=== PATIENT | male | born 1975 | race Hispanic/Latino ===

== ENCOUNTER → 2018-07-08 | Emergency (ER) | payer SELFPAY ==
[~2018-07-08] VITALS: Ht 172.7 cm; Wt 63.5 kg
--- OUTSIDE RECORDS SUMMARY | 2018-07-08 19:47 | XMS REPORT | Clinical Summary ---
Author Author [facility] Organization [facility] Address Unknown Phone Unavailable Care Team Providers Care Director [employer] Name Role Phone PCP Unavailable Allergies Comments Active Allergy Reactions Severity Noted Date Iodine 01/27/2016 No Known Drug Allergies 02/12/2010 Medications No known medications Active Problems Problem Noted Date Ankle pain 01/27/2016 Forehead laceration 01/27/2016 Acute heart failure Hypervolemia Fever Encounters Care Team Description Date Type Specialty Olya Quintana MD Chest pain, unspecified type (Primary Dx); Acute heart failure, unspecified heart failure type; Hypervolemia, unspecified hypervolemia type; Fever, unspecified fever cause; Sepsis, due to unspecified organism 06/14/2018 Emergency Emergency Medicine - 06/15/2018 after 07/07/2017 Immunizations Name Dates Previously Given Next Due Tdap Tetanus, diphtheria, 01/27/2016 acellular pertussis Vaccine Social History Date Tobacco Use Types Packs/Day Years Used Never Smoker Smokeless Tobacco: Never Used Alcohol Use Drinks/Week oz/Week Comments No Sex Assigned at Date Recorded Not on file Industry Job Start Date Occupation Not on file Not on file Not on file Travel End Travel History Travel Start No recent travel history available. Last Filed Vital Signs Time Taken Vital Sign Reading 06/15/2018 5:30 AM 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 Blood Pressure 101/73 06/15/2018 5:30 AM 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 Pulse 99 06/14/2018 11:21 PM 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 Temperature 36.9 C (98.4 F) 06/15/2018 5:30 AM 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 Respiratory Rate 18 06/15/2018 5:30 AM 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 Oxygen Saturation 100% - Inhaled Oxygen - Concentration - Weight - - Height - - Body Mass Index - Plan of Treatment Health Maintenance Due Date Last Done Comments IMM Influenza Seasonal 05/02/2018May to September (>/=19 yrs) Procedures Comments Procedure Name Priority Date/Time Associated Diagnosis VBG POC Routine 06/15/2018 4:24 AM 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 CENTRAL LINE INSERTION Routine 06/15/2018 Chest pain, unspecified 1:21 AM 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 type VBG POC Routine 06/15/2018 1:09 AM 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 XRAY CHEST 1 VIEW STAT 06/15/2018 Acute heart failure, 1:01 AM 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 unspecified heart failure type INFLUENZA A/B AND RSV PCR STAT 06/14/2018 10:43 PM 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 XRAY CHEST 2 VIEWS STAT 06/14/2018 Chest pain, unspecified 9:41 PM 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 type BLOOD CULTURE STAT 06/14/2018 8:27 PM 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 VBG POC Routine 06/14/2018 8:20 PM 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 BLOOD CULTURE STAT 06/14/2018 8:18 PM 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 CKMB, REFLEX Routine 06/14/2018 8:10 PM 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 CK, TOTAL Routine 06/14/2018 8:10 PM 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 TOTAL T4 Routine 06/14/2018 8:10 PM 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 FREE T3 Routine 06/14/2018 8:10 PM 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 BASIC METABOLIC PANEL Routine 06/14/2018 8:10 PM 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 TROPONIN I STAT 06/14/2018 8:10 PM 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 BMP POC Routine 06/14/2018 4:38 PM 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 TROPONIN I POC Routine 06/14/2018 4:36 PM 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 B NATRIURETIC PEPT STAT 06/14/2018 4:35 PM 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 HIV-1/HIV-2 ROUTINE STAT 06/14/2018 SCREENING 4:35 PM 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 CBC/DIFF STAT 06/14/2018 4:35 PM 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 12 LEAD EKG Routine 06/14/2018 4:00 PM 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 after 07/07/2017 Results * VBG POC (06/15/2018 4:24 AM 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) Only the most recent of 3 results within the time period is included. pH, Federico POC 7.43 7.33 - 7.43 BT MAIN-STATION 1 pCO2, Federico POC 44.7 38.0 - 50.0 mm Hg BT MAIN-STATION 1 pO2, Federico POC 24 (L) 50 - 75 mm Hg BT MAIN-STATION 1 Base Excess, 5 mmol/L BT MAIN-STATION Federico POC 1 HCO3, Federico POC 30.0 (H) 22.0 - 26.0 mmol/L BT MAIN-STATION 1 % Sat, Federico POC 44 (L) 60 - 85 % BT MAIN-STATION 1 Lactic Acid, 1.29 0.4 - 2.0 mmol/L BT MAIN-STATION Federico POC 1 TCO2, FEDERICO POC 31 21 - 32 mmol/L BT MAIN-STATION 1 Performing Organization Address City/State/Zipcode Phone Number MISYS BT MAIN-STATION 1 * CENTRAL LINE INSERTION (06/15/2018 1:21 AM 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) Narrative Performed At [facility] 06/15/20181:05 AM Central Line Insertion Date/Time: 06/15/2018 1:00 AM Performed by: ANGELA SPENCER I Authorized by: OLYA QUINTANA Consent: Consent obtained:Verbal Consent given by:Patient and parent Risks discussed:Arterial puncture, bleeding, incorrect placement, infection, nerve damage and pneumothorax Alternatives discussed:No treatment [place] protocol: Procedure explained and questions answered to patient or proxy's satisfaction: yes Relevant documents present and verified: yes Test results available and properly labeled: yes Imaging studies available: yes Required blood products, implants, devices, and special equipment available: yes Site/side marked: yes Immediately prior to procedure, a time out was called: yes Patient identity confirmed:Verbally with patient Pre-procedure details: Hand hygiene: Hand hygiene performed prior to insertion Sterile barrier technique: All elements of maximal sterile technique followed Skin preparation:2% chlorhexidine Skin preparation agent: Skin preparation agent completely dried prior to procedure Anesthesia (see MAR for exact dosages): Anesthesia method:Local infiltration Local anesthetic:Lidocaine 1% w/o epi Procedure details: Location:R internal jugular Patient position:Flat Procedural supplies:Triple lumen Catheter size:7.5 Fr Landmarks identified: yes Ultrasound guidance: yes Sterile ultrasound techniques: Sterile gel and sterile probe covers were used Number of attempts:1 Successful placement: yes Post-procedure details: Post-procedure:Dressing applied and line sutured Assessment:Blood return through all ports, free fluid flow, no pneumothorax on x-ray and placement verified by x-ray Patient tolerance of procedure:Tolerated well, no immediate complications Additional documentation:: None Estimated blood loss (ml):0 No prosthetic devices, grafts, tissues, transplants or devices implanted * XRAY CHEST 1 VIEW (06/15/2018 1:01 AM 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) Impressions Performed At IMPRESSION: SMS 1.Interval right IJ CVC with tip projecting over the cavoatrial junction. No post line insertion pneumothorax. 2.Stable interstitial edema with medium right pleural effusion. 3.Age-indeterminate thoracic vertebral body compression deformity better evaluated on previous 2 view chest radiograph. A "PRELIMINARY" report was made available via Cinet[employer]ffic at the time of dictation by the resident indicated below. If the report is described as "FINALIZED" it indicates the attending/staff radiologist below has reviewed the images and agrees with the resident's interpretation. Dictated By: Patsy Antunez MD, 06/15/2018 1:11 AM I have reviewed the study and agree with the findings in this report. Signed By: Zoe Harrison MD, 06/15/2018 1:48 AM Narrative Performed At EXAMINATION:XRAY CHEST 1 VIEW, AP SMS INDICATION: Central line placement ADDITIONAL HISTORY (per [facility]): Chest pain, history of congestive heart failure. COMPARISON:Chest x-ray 06/14/2018 9:43 PM. FINDINGS: TUBES/LINES:Interval placement of a right internal jugular approach central venous catheter whose tip projects over the cavoatrial junction. LUNGS AND PLEURA:Stable peribronchial cuffing and vascular congestion. Unchanged medium right pleural effusion with fluid tracking into the major minor fissures. HEART/MEDIASTINUM:Moderately enlarged cardiomediastinal silhouette. MUSCULOSKELETAL:Age-indeterminate mid-thoracic vertebrae compression deformity better evaluated on previous 2 view chest radiograph. UPPER ABDOMEN: No acute findings. SOFT TISSUES: No acute findings. Procedure Note Interface, Rad/Mammog In - 06/15/2018 1:53 AM 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 EXAMINATION: XRAY CHEST 1 VIEW, AP INDICATION: Central line placement ADDITIONAL HISTORY (per [facility]): Chest pain, history of congestive heart failure. COMPARISON: Chest x-ray 06/14/2018 9:43 PM. FINDINGS: TUBES/LINES: Interval placement of a right internal jugular approach central venous catheter whose tip projects over the cavoatrial junction. LUNGS AND PLEURA: Stable peribronchial cuffing and vascular congestion. Unchanged medium right pleural effusion with fluid tracking into the major minor fissures. HEART/MEDIASTINUM: Moderately enlarged cardiomediastinal silhouette. MUSCULOSKELETAL: Age-indeterminate mid-thoracic vertebrae compression deformity better evaluated on previous 2 view chest radiograph. UPPER ABDOMEN: No acute findings. SOFT TISSUES: No acute findings. IMPRESSION IMPRESSION: 1. Interval right IJ CVC with tip projecting over the cavoatrial junction. No post line insertion pneumothorax. 2. Stable interstitial edema with medium right pleural effusion. 3. Age-indeterminate thoracic vertebral body compression deformity better evaluated on previous 2 view chest radiograph. A "PRELIMINARY" report was made available via [employer]inet[employer] at the time of dictation by the resident indicated below. If the report is described as "FINALIZED" it indicates the attending/staff radiologist below has reviewed the images and agrees with the resident's interpretation. Dictated By: Patsy Antunez MD, 06/15/2018 1:11 AM I have reviewed the study and agree with the findings in this report. Signed By: Zoe Harrison MD, 06/15/2018 1:48 AM Performing Organization Address City/[facility] Phone Number SMS * INFLUENZA A/B AND RSV PCR (06/14/2018 10:43 PM 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) Influenza A Not detected BT DIAGNOSTIC IMMUNOLOGY Influenza B Not detected BT DIAGNOSTIC IMMUNOLOGY RSV PCR Not detected BT DIAGNOSTIC This test utilizes FDA cleared IMMUNOLOGY Garcia sanna Influenza A/B and RSV real-time RT-PCR assay for qualitative detection and discrimination of Influenza A virus,Influenza B virus and Respiratory Syncytial virus(RSV). Additional testing is required to differentiate any specific Influenza A subtype or strains or specific RSV subgroups. Spec Swab BT MAIN-STATION Description 4 Performing Organization Address [facility] Phone Number [facility] BT DIAGNOSTIC IMMUNOLOGY BT MAIN-STATION 4 * XRAY CHEST 2 VIEWS (06/14/2018 9:41 PM 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) Impressions Performed At IMPRESSION: SMS 1.Interstitial edema. Medium right pleural effusion which tracks into the major and minor fissure. 2.Age-indeterminate thoracic vertebral body compression deformity. A "PRELIMINARY" report was made available via Cinet[employer] at the time of dictation by the resident indicated below. If the report is described as "FINALIZED" it indicates the attending/staff radiologist below has reviewed the images and agrees with the resident's interpretation. Dictated By: Patsy Antunez MD, 06/14/2018 10:33 PM I have reviewed the study and agree with the findings in this report. Signed By: Zoe Harrison MD, 06/14/2018 10:36 PM Narrative Performed At EXAMINATION:XRAY CHEST 2 VIEWS, Frontal and lateral SMS INDICATION: chest pain, history of congestive heart failure COMPARISON:Chest x-ray 02/15/2010. FINDINGS: TUBES/LINES:None LUNGS AND PLEURA:Peribronchial cuffing. Central vascular congestion. Medium right pleural effusion with fluid tracking into the major and minor fissure. HEART/MEDIASTINUM:Moderately enlarged cardiac silhouette. MUSCULOSKELETAL:Age indeterminant compression deformity of a mid thoracic vertebral body (possibly T6) resulting in approximately 50% loss of vertebral body height. Questionable additional compression deformity just superior to this vertebral body. UPPER ABDOMEN: No acute findings. SOFT TISSUES: No acute findings. Procedure Note Interface, Rad/Mammog In - 06/14/2018 10:41 PM 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 EXAMINATION: XRAY CHEST 2 VIEWS, Frontal and lateral INDICATION: chest pain, history of congestive heart failure COMPARISON: Chest x-ray 02/15/2010. FINDINGS: TUBES/LINES: None LUNGS AND PLEURA: Peribronchial cuffing. Central vascular congestion. Medium right pleural effusion with fluid tracking into the major and minor fissure. HEART/MEDIASTINUM: Moderately enlarged cardiac silhouette. MUSCULOSKELETAL: Age indeterminant compression deformity of a mid thoracic vertebral body (possibly T6) resulting in approximately 50% loss of vertebral body height. Questionable additional compression deformity just superior to this vertebral body. UPPER ABDOMEN: No acute findings. SOFT TISSUES: No acute findings. IMPRESSION IMPRESSION: 1. Interstitial edema. Medium right pleural effusion which tracks into the major and minor fissure. 2. Age-indeterminate thoracic vertebral body compression deformity. A "PRELIMINARY" report was made available via [employer]inet[employer] at the time of dictation by the resident indicated below. If the report is described as "FINALIZED" it indicates the attending/staff radiologist below has reviewed the images and agrees with the resident's interpretation. Dictated By: Patsy Antunez MD, 06/14/2018 10:33 PM I have reviewed the study and agree with the findings in this report. Signed By: Zoe Harrison MD, 06/14/2018 10:36 PM Performing Organization Address City/State/Zipcode Phone Number SMS * BLOOD CULTURE (06/14/2018 8:27 PM 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) Only the most recent of 2 results within the time period is included. Spec Blood BT MICROBIOLOGY Description Order Comments None BT MICROBIOLOGY Culture No growth 6 days BT MICROBIOLOGY Report Status Final 06/20/2018 BT MICROBIOLOGY Specimen Blood bag - BLOOD Performing Organization Address [facility] [place] [facility] Phone Number MISYS BT MICROBIOLOGY * CKMB, REFLEX (06/14/2018 8:10 PM 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) CK-MB 4.7 0.6 - 6.3 ng/mL BT MAIN-STATION 1 CKMB Index 1.6 0 - 2.5 BT MAIN-STATION 1 Performing Organization Address City/[facility] Phone Number MISYS BT MAIN-STATION 1 * TOTAL T4 (06/14/2018 8:10 PM 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) Total T4 7.00 6.09 - 12.23 mcg/dL BT MAIN-STATION 1 Performing Organization Address [facility] Phone Number MISYS BT MAIN-STATION 1 * FREE T3 (06/14/2018 8:10 PM 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) Free T3 2.73 2.5 - 3.9 pg/mL BT MAIN-STATION 1 Performing Organization Address City/[facility] Phone Number [facility] BT MAIN-STATION 1 * TROPONIN I (06/14/2018 8:10 PM 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) Troponin I 0.09 (H) <0.04 ng/mL BT MAIN-STATION 1 Specimen Blood Performing Organization Address [facility] Phone Number [facility] BT MAIN-STATION 1 * CK, TOTAL (06/14/2018 8:10 PM 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) CK, Total 299 (H) 30 - 223 U/L BT MAIN-STATION 1 Performing Organization Address City/State/[facility] Phone Number [facility] BT MAIN-STATION 1 * BASIC METABOLIC PANEL (06/14/2018 8:10 PM 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) CO2 31 21 - 31 mmol/L BT MAIN-STATION 1 Chloride 90 (L) 98 - 107 mmol/L BT MAIN-STATION 1 Potassium 4.9 3.5 - 5.1 mmol/L BT MAIN-STATION 1 Sodium 128 (L) 136 - 145 mmol/L BT MAIN-STATION 1 Glucose 207 (H) 70 - 110 mg/dL BT MAIN-STATION 1 Urea Nitrogen 35 (H) 7 - 25 mg/dL BT MAIN-STATION 1 Creatinine 2.00 (H) 0.7 - 1.3 mg/dL BT MAIN-STATION 1 Anion Gap 7 BT MAIN-STATION 1 Calcium 7.9 (L) 8.6 - 10.3 mg/dL BT MAIN-STATION 1 GFR, Estimated 37 mL/min/1.73 m2 BT MAIN-STATION 1 GFR, Estim, 45 mL/min/1.73 m2 BT MAIN-STATION Afr-Am 1 Performing Organization Address [facility] [place] [facility] Phone Number MISYS MAIN-STATION 1 * BMP POC (06/14/2018 4:38 PM 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) CO2 POC 26Comment: Physician Notified 21 - 32 mmol/L BT MAIN-STATION 1 Chloride POC 87 (L) 98 - 107 mmol/L BT MAIN-STATION 1 Potassium POC 3.6 3.50 - 5.10 mmol/L BT MAIN-STATION 1 Sodium POC 133 (L) 136 - 145 mmol/L BT MAIN-STATION 1 Glucose POC 203 (H) 74 - 106 mg/dL BT MAIN-STATION 1 Urea Nitrogen 32 (H) 7 - 18 mg/dL BT MAIN-STATION POC 1 Creatinine POC 1.9 (H) 0.6 - 1.3 mg/dL BT MAIN-STATION 1 Calcium Ionized 1.03 (L) 1.15 - 1.29 mmol/L BT MAIN-STATION POC 1 Hemoglobin POC 15.3 14.0 - 18.0 g/dL BT MAIN-STATION 1 Hematocrit POC 45.0 40.0 - 54.0 % BT MAIN-STATION 1 GFR, Estimated 39 mL/min/1.73 m2 BT MAIN-STATION 1 GFR, Estim, 48 mL/min/1.73 m2 BT MAIN-STATION Afr-Am 1 Performing Organization Address [facility]/State/Zipcode Phone Number MISYS BT MAIN-STATION 1 * TROPONIN I POC (06/14/2018 4:36 PM 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) Troponin POC 0.07Comment: Physician 0.00 - 0.08 ng/mL BT MAIN-STATION Notified 1 Performing Organization Address [facility] Phone Number [facility] BT MAIN-STATION 1 * HIV-1/HIV-2 ROUTINE SCREENING (06/14/2018 4:35 PM 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) HIV-1/HIV-2 Negative NEG BT MAIN-STATION 3 Performing Organization Address City/State/[facility] Phone Number [facility] BT MAIN-STATION 3 * B NATRIURETIC PEPT (06/14/2018 4:35 PM 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) B Natriuretic 6,970 (H) <101 pg/mL BT MAIN-STATION Pept 1 Specimen Blood Performing Organization Address [facility] Phone Number MISYS BT MAIN-STATION 1 * CBC/DIFF (06/14/2018 4:35 PM 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) WBC 4.5 4.5 - 12.0 K/uL BT MAIN-STATION 2 RBC 4.23 (L) 4.60 - 6.20 M/uL BT MAIN-STATION 2 Hemoglobin 12.9 (L) 14.0 - 18.0 g/dL BT MAIN-STATION 2 Hematocrit 39.6 (L) 40.0 - 54.0 % BT MAIN-STATION 2 MCV 94 (H) 82 - 92 fL BT MAIN-STATION 2 MCH 30.5 27.0 - 31.0 pg BT MAIN-STATION 2 MCHC 32.6 32.0 - 36.0 g/dL BT MAIN-STATION 2 RDW 50.1 (H) 35.1 - 43.9 fL BT MAIN-STATION 2 Platelet 101 (L) 150 - 400 K/uL BT MAIN-STATION 2 Mean Platelet 12.2 9.4 - 12.4 fL BT MAIN-STATION Volume 2 Percent NRBC 0.0 BT MAIN-STATION 2 Absolute NRBC 0.00 BT MAIN-STATION 2 Neutrophil 70.9 (H) 34.0 - 67.9 % BT MAIN-STATION 2 Lymphocyte 20.3 (L) 21.8 - 50.0 % BT MAIN-STATION 2 Monocyte 8.0 5.3 - 12.0 % BT MAIN-STATION 2 Eosinophil 0.0 (L) 0.8 - 5.0 % BT MAIN-STATION 2 Basophil 0.4 0.2 - 1.2 % BT MAIN-STATION 2 Pct Immat Gran 0.4 0.0 - 0.5 BT MAIN-STATION 2 Neutrophil, Abs 3.17 1.78 - 5.36 K/uL BT MAIN-STATION 2 Lymphocyte, Abs 0.91 (L) 1.32 - 3.57 K/uL BT MAIN-STATION 2 Monocyte, Abs 0.36 0.30 - 0.82 K/uL BT MAIN-STATION 2 Eosinophil, Abs <0.01 (L) 0.04 - 0.54 K/uL BT MAIN-STATION 2 Basophil, Abs 0.02 0.01 - 0.08 K/uL BT MAIN-STATION 2 Absol Immat 0.02 0.00 - 0.03 K/uL BT MAIN-STATION Gran 2 Specimen Blood Performing Organization Address City/State/Zipcode Phone Number MISYS BT MAIN-STATION 2 * 12 LEAD EKG (06/14/2018 4:00 PM 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 Measurements Intervals [place] Rate: 135 P: 55 AR: 136 QRS: 71 QRSD: 77 T:-40 QT: 279 QTc:419 Interpretive Statements SINUS TACHYCARDIA NONSPECIFIC ST & T-WAVE ABNORMALITY Reviewed by Electronically Signed On 06-14-18 18:22:39 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 by Dee Momin M.D. Performing Organization Address City/State/Zipcode Phone Number [facility] after 07/07/2017 Insurance Type Payer Benefit Subscriber ID Effective Phone Address Plan / Dates Group [facility]Y [facility] xxxxxxxxx 2016- [phone] [employer] [place] [address]
--- OUTSIDE RECORDS SUMMARY | 2018-07-08 19:48 | XMS REPORT | Clinical Summary ---
Author Author Martin Bahai Organization Martin Bahai Address Unknown Phone Unavailable Care Team Providers [facility] [employer] [employer] Name Role Phone Asked, No Pcp PCP Unavailable Allergies Comments Active Allergy Reactions Severity Noted Date Patient states he cannot breathe, has severe facial swelling Iodine And Iodide Anaphylaxis, High 05/31/2018 Containing Products Shortness Of Breath Medications End Date Status Medication Sig Dispensed Refills Start Date Active albuterol (PROAIR Inhale 2 0 HFA,PROVENTIL puffs every 6 HFA,VENTOLIN HFA) 90 (six) hours mcg/actuation inhaler as needed for wheezing. 06/24/2018 naproxen (NAPROSYN) 500 Take 1 tablet 20 tablet 0 06/14/201 MG tablet (500 mg 8 total) by mouth 2 (two) times a day with meals for 10 days. Active Problems Problem Noted Date Septic shock 06/15/2018 Systolic heart failure 06/15/2018 Pleural effusion 06/15/2018 Suicidal ideation 06/15/2018 LFTs abnormal 06/15/2018 NORA (acute kidney injury) 06/15/2018 Thrombocytopenia 06/15/2018 Leukopenia 06/15/2018 Neutropenia 06/15/2018 Hypokalemia 06/15/2018 Hypocalcemia 06/15/2018 Normocytic anemia 06/15/2018 Asthma 06/15/2018 Elevated INR (international normalized ratio) 06/15/2018 Acute congestive heart failure 05/31/2018 Ankle pain 01/27/2016 Encounters Care Team Description Date Type Specialty Jenifer Sinha MD Khoshnevis, Matt R., MD Shah, MD Vaibhav Willis Jinping, MD Clewing, Johanna, MD 06/15/2018 Hospital Cardiology - Encounter 06/28/2018 N/A 06/15/2018 Intake Access Oskar Brown, Pain in both feet (Primary Dx) 06/14/2018 Emergency Emergency Medicine 06/14/2018 Travel Mulugeta Moss MD Abouelseoud, Tanseem Hamad Mohamed A, MD Roberts, Matthew Thomas, DO Acute congestive heart failure, unspecified heart failure type (HCC) (Primary Dx); Pleural effusion on right; Anasarca 05/31/2018 [facility] General Internal Medicine - Encounter 06/03/2018 after 07/07/2017 Social History Date Tobacco Use Types Packs/Day Years Used Current Every Day Smoker 1 Smokeless Tobacco: Never Used Alcohol Use Drinks/Week oz/Week Comments Yes Sex Assigned at Date Recorded Not on file Industry Job Start Date Occupation Not on file Not on file Not on file Travel End Travel History Travel Start No recent travel history available. Last Filed Vital Signs Time Taken Vital Sign Reading 06/28/2018 4:15 PM [facility] Blood Pressure 113/74 06/28/2018 4:15 PM [facility] Pulse 85 06/28/2018 11:47 AM [facility] Temperature 35.9 C (96.6 F) 06/28/2018 4:15 PM [facility] Respiratory Rate 18 06/28/2018 4:15 PM [facility]IST Oxygen Saturation 100% - Inhaled Oxygen - Concentration 06/26/2018 5:03 AM [facility] Weight 73.6 kg (162 lb 4.8 oz) 06/15/2018 7:00 AM [facility] Height 172.7 cm (5' 8") 06/26/2018 5:03 AM [facility] Body Mass Index 24.68 Plan of Treatment Health Maintenance Due Date Last Done Comments INFLUENZA VACCINE 03/02/2018 HEPATITIS B VACCINES Aged Out No longer eligible based on patient's age to complete this topic IPV VACCINES Aged Out No longer eligible based on patient's age to complete this topic MENINGOCOCCAL VACCINE Aged Out No longer eligible based on patient's age to complete this topic Procedures Comments Procedure Name Priority Date/Time Associated Diagnosis POC GLUCOSE Routine 06/28/2018 4:41 PM [facility] POC GLUCOSE Routine 06/28/2018 1:30 PM [facility]IST CV CTA CORONARY ARTERIES Routine 06/28/2018 W CONTRAST 1:25 PM INS[facility]S STR[facility]GIST POC GLUCOSE Routine 06/28/2018 11:57 AM [facility] STR[facility]GIST POC GLUCOSE Routine 06/28/2018 9:00 AM [facility]S STR[facility]GIST POTASSIUM LEVEL Routine 06/28/2018 4:00 AM INSIGHTS STR[facility]GIST ESTIMATED GFR Routine 06/28/2018 2:38 AM [facility]S STR[facility]GIST BASIC METABOLIC PANEL Routine 06/28/2018 2:38 AM [facility] STR[facility]IST HC COMPLETE BLD COUNT Routine 06/28/2018 W/AUTO DIFF 2:30 AM INS[facility]S STR[facility]GIST POC GLUCOSE Routine 06/27/2018 5:09 PM [facility] STR[facility]GIST POC GLUCOSE Routine 06/27/2018 1:[address] ABDOMEN PELVIS WO STAT 06/27/2018 CONTRAST 4:38 AM INSIGHTS STRATEGIST ESTIMATED GFR Routine 06/27/2018 3:49 AM INSIGHTS STRATEGIST BASIC METABOLIC PANEL Routine 06/27/2018 3:49 AM [facility] STR[facility]GIST HC COMPLETE BLD COUNT Routine 06/27/2018 W/AUTO DIFF 3:30 AM INSIGHTS STRATEGIST POC GLUCOSE Routine 06/26/2018 10:24 PM INSIGHTS STRATEGIST ECG 12-LEAD STAT 06/26/2018 9:36 PM INSIGHTS STRATEGIST POC GLUCOSE Routine 06/26/2018 4:47 PM INSIGHTS STRATEGIST POC GLUCOSE Routine 06/26/2018 4:13 PM INSIGHTS STRATEGIST POC GLUCOSE Routine 06/26/2018 11:45 AM INSIGHTS STRATEGIST POC GLUCOSE Routine 06/26/2018 7:55 AM INSIGHTS STRATEGIST ESTIMATED GFR Routine 06/26/2018 6:00 AM INSIGHTS STRATEGIST PHOSPHORUS LEVEL Routine 06/26/2018 6:00 AM INSIGHTS STRATEGIST BASIC METABOLIC PANEL Routine 06/26/2018 6:00 AM INSIGHTS STRATEGIST MAGNESIUM LEVEL Routine 06/26/2018 6:00 AM INSIGHTS STRATEGIST HC COMPLETE BLD COUNT Routine 06/26/2018 W/AUTO DIFF 4:30 AM INSIGHTS STRATEGIST MAGNESIUM LEVEL Routine 06/26/2018 3:39 AM INSIGHTS STRATEGIST PHOSPHORUS LEVEL Routine 06/26/2018 3:39 AM INSIGHTS STRATEGIST BASIC METABOLIC PANEL Routine 06/26/2018 3:39 AM INSIGHTS STRATEGIST HC COMPLETE BLD COUNT Routine 06/26/2018 W/AUTO DIFF 2:30 AM INSIGHTS STRATEGIST POC GLUCOSE Routine 06/25/2018 8:05 PM INSIGHTS STRATEGIST POC GLUCOSE Routine 06/25/2018 5:38 PM INSIGHTS STRATEGIST POC GLUCOSE Routine 06/25/2018 1:01 PM INSIGHTS STRATEGIST POC GLUCOSE Routine 06/25/2018 8:30 AM INSIGHTS STRATEGIST ESTIMATED GFR Routine 06/25/2018 3:56 AM INSIGHTS STRATEGIST COMPREHENSIVE METABOLIC Routine 06/25/2018 PANEL 3:56 AM INSIGHTS STRATEGIST CBC HEMOGRAM Routine 06/25/2018 2:52 AM INSIGHTS STRATEGIST POC GLUCOSE Routine 06/25/2018 1:04 AM INSIGHTS STRATEGIST VANCOMYCIN LEVEL, TROUGH Routine 06/25/2018 12:09 AM INSIGHTS STRATEGIST POC GLUCOSE Routine 06/24/2018 8:33 PM INSIGHTS STRATEGIST POC GLUCOSE Routine 06/24/2018 5:46 PM INSIGHTS STRATEGIST XR ABDOMEN 1 VW Routine 06/24/2018 3:44 PM INSIGHTS STRATEGIST XR CHEST 1 VW Routine 06/24/2018 3:43 PM INSIGHTS STRATEGIST POC GLUCOSE Routine 06/24/2018 12:01 PM INSIGHTS STRATEGIST POC GLUCOSE Routine 06/24/2018 7:49 AM INSIGHTS STRATEGIST ESTIMATED GFR Routine 06/24/2018 4:00 AM INSIGHTS STRATEGIST COMPREHENSIVE METABOLIC Routine 06/24/2018 PANEL 4:00 AM INSIGHTS STRATEGIST MANUAL DIFFERENTIAL Routine 06/24/2018 3:45 AM INSIGHTS STRATEGIST CBC WITH PLATELET AND Routine 06/24/2018 DIFFERENTIAL 3:45 AM INSIGHTS STRATEGIST POC GLUCOSE Routine 06/23/2018 8:37 PM INSIGHTS STRATEGIST POC GLUCOSE Routine 06/23/2018 5:16 PM INSIGHTS STRATEGIST POC GLUCOSE Routine 06/23/2018 12:56 PM INSIGHTS STRATEGIST POC GLUCOSE Routine 06/23/2018 8:45 AM INSIGHTS STRATEGIST POC GLUCOSE Routine 06/23/2018 5:18 AM INSIGHTS STRATEGIST MANUAL DIFFERENTIAL Routine 06/23/2018 5:00 AM INSIGHTS STRATEGIST CBC WITH PLATELET AND Routine 06/23/2018 DIFFERENTIAL 5:00 AM INSIGHTS STRATEGIST ESTIMATED GFR Routine 06/23/2018 4:00 AM INSIGHTS STRATEGIST COMPREHENSIVE METABOLIC Routine 06/23/2018 PANEL 4:00 AM [facility]S STRATEGIST POC GLUCOSE Routine 06/23/2018 1:10 AM [facility]S STR[facility]GIST VANCOMYCIN LEVEL, TROUGH Timed 06/22/2018 10:30 PM INSIGHTS STRATEGIST POC GLUCOSE Routine 06/22/2018 8:37 PM INSIGHTS STRATEGIST POC GLUCOSE Routine 06/22/2018 4:30 PM INSIGHTS STRATEGIST POC GLUCOSE Routine 06/22/2018 11:51 AM INSIGHTS STRATEGIST POC GLUCOSE Routine 06/22/2018 8:39 AM INSIGHTS STRATEGIST ESTIMATED GFR Routine 06/22/2018 2:50 AM [facility]S STRATEGIST HC COMPLETE BLD COUNT Routine 06/22/2018 W/AUTO DIFF 2:50 AM INSIGHTS STRATEGIST COMPREHENSIVE METABOLIC Routine 06/22/2018 PANEL 2:50 AM INS[facility]S STR[facility]GIST XR CHEST 2 VW STAT 06/21/2018 8:51 PM INSIGHTS STRATEGIST XR CHEST 1 VW PORTABLE STAT 06/21/2018 5:19 PM INS[facility]S STRATEGIST POC GLUCOSE Routine 06/21/2018 3:43 PM INSIGHTS STRATEGIST POC GLUCOSE Routine 06/21/2018 11:57 AM INSIGHTS STRATEGIST ESTIMATED GFR Routine 06/21/2018 4:00 AM INSIGHTS STRATEGIST COMPREHENSIVE METABOLIC Routine 06/21/2018 PANEL 4:00 AM [facility]IGHTS STRATEGIST PHOSPHORUS LEVEL Routine 06/21/2018 4:00 AM INSIGHTS STRATEGIST MAGNESIUM LEVEL Routine 06/21/2018 4:00 AM INSIGHTS STRATEGIST HC COMPLETE BLD COUNT Routine 06/21/2018 W/AUTO DIFF 4:00 AM INSIGHTS STRATEGIST POC GLUCOSE Routine 06/21/2018 12:45 AM INSIGHTS STRATEGIST POC GLUCOSE Routine 06/20/2018 8:57 PM INSIGHTS STRATEGIST POC GLUCOSE Routine 06/20/2018 6:13 PM INSIGHTS STRATEGIST POC GLUCOSE Routine 06/20/2018 12:56 PM INSIGHTS STRATEGIST ESTIMATED GFR Routine 06/20/2018 4:00 AM INSIGHTS STRATEGIST PROTHROMBIN TIME WITH INR Routine 06/20/2018 4:00 AM INSIGHTS STRATEGIST PHOSPHORUS LEVEL Routine 06/20/2018 4:00 AM INSIGHTS STRATEGIST MAGNESIUM LEVEL Routine 06/20/2018 4:00 AM INSIGHTS STRATEGIST BASIC METABOLIC PANEL Routine 06/20/2018 4:00 AM INSIGHTS STRATEGIST HC COMPLETE BLD COUNT Routine 06/20/2018 W/AUTO DIFF 4:00 AM INSIGHTS STRATEGIST POC GLUCOSE Routine 06/20/2018 3:51 AM INSIGHTS STRATEGIST POC GLUCOSE Routine 06/19/2018 6:53 PM INSIGHTS STRATEGIST TROPONIN STAT 06/19/2018 3:53 PM INSIGHTS STRATEGIST ECG 12-LEAD STAT 06/19/2018 3:33 PM INSIGHTS STRATEGIST POC GLUCOSE Routine 06/19/2018 3:18 PM INSIGHTS STRATEGIST POC GLUCOSE Routine 06/19/2018 11:15 AM INSIGHTS STRATEGIST ECG 12-LEAD STAT 06/19/2018 6:09 AM INSIGHTS STRATEGIST O2 SATURATION, VENOUS Routine 06/19/2018 5:30 AM INSIGHTS STRATEGIST POC GLUCOSE Routine 06/19/2018 5:06 AM INSIGHTS STRATEGIST HC COMPLETE BLD COUNT Routine 06/19/2018 W/AUTO DIFF 4:30 AM INSIGHTS STRATEGIST ESTIMATED GFR Routine 06/19/2018 4:00 AM INSIGHTS STRATEGIST PHOSPHORUS LEVEL Routine 06/19/2018 4:00 AM INSIGHTS STRATEGIST MAGNESIUM LEVEL Routine 06/19/2018 4:00 AM INSIGHTS STRATEGIST BASIC METABOLIC PANEL Routine 06/19/2018 4:00 AM INSIGHTS STRATEGIST POC GLUCOSE Routine 06/18/2018 8:51 PM INSIGHTS STRATEGIST POC GLUCOSE Routine 06/18/2018 4:50 PM INSIGHTS STRATEGIST POC GLUCOSE Routine 06/18/2018 12:08 PM INSIGHTS STRATEGIST POC GLUCOSE Routine 06/18/2018 7:25 AM INSIGHTS STRATEGIST HC COMPLETE BLD COUNT Routine 06/18/2018 W/AUTO DIFF 5:45 AM INSIGHTS STRATEGIST POC GLUCOSE Routine 06/18/2018 5:02 AM INSIGHTS STRATEGIST ESTIMATED GFR Routine 06/18/2018 4:00 AM INSIGHTS STRATEGIST PHOSPHORUS LEVEL Routine 06/18/2018 4:00 AM INSIGHTS STRATEGIST MAGNESIUM LEVEL Routine 06/18/2018 4:00 AM INSIGHTS STRATEGIST COMPREHENSIVE METABOLIC Routine 06/18/2018 PANEL 4:00 AM INSIGHTS STRATEGIST POC GLUCOSE Routine 06/17/2018 8:44 PM INSIGHTS STRATEGIST POC GLUCOSE Routine 06/17/2018 6:14 PM INSIGHTS STRATEGIST POC GLUCOSE Routine 06/17/2018 12:56 PM INSIGHTS STRATEGIST POC GLUCOSE Routine 06/17/2018 4:43 AM INSIGHTS STR[facility]GIST SMEAR REVIEW Routine 06/17/2018 4:00 AM INSIGHTS STRATEGIST ESTIMATED GFR Routine 06/17/2018 4:00 AM INSIGHTS STRATEGIST PHOSPHORUS LEVEL Routine 06/17/2018 4:00 AM INSIGHTS STRATEGIST MAGNESIUM LEVEL Routine 06/17/2018 4:00 AM INSIGHTS STRATEGIST COMPREHENSIVE METABOLIC Routine 06/17/2018 PANEL 4:00 AM INSIGHTS STRATEGIST HC COMPLETE BLD COUNT Routine 06/17/2018 W/AUTO DIFF 4:00 AM INSIGHTS STRATEGIST POC GLUCOSE Routine 06/17/2018 1:04 AM INSIGHTS STRATEGIST ESTIMATED GFR Timed 06/16/2018 9:35 PM INSIGHTS STRATEGIST COMPREHENSIVE METABOLIC Timed 06/16/2018 PANEL 9:35 PM INSIGHTS STRATEGIST O2 SATURATION, VENOUS Timed 06/16/2018 9:35 PM INSIGHTS STRATEGIST MAGNESIUM LEVEL Timed 06/16/2018 9:35 PM INSIGHTS STRATEGIST LACTIC ACID LEVEL Timed 06/16/2018 9:35 PM INSIGHTS STRATEGIST VANCOMYCIN LEVEL, TROUGH Timed 06/16/2018 9:35 PM INSIGHTS STRATEGIST POC GLUCOSE Routine 06/16/2018 8:33 PM INSIGHTS STRATEGIST POC GLUCOSE Routine 06/16/2018 5:01 PM INSIGHTS STRATEGIST AMMONIA LEVEL Routine 06/16/2018 4:05 PM INSIGHTS STRATEGIST O2 SATURATION, VENOUS Timed 06/16/2018 4:05 PM INSIGHTS STRATEGIST ESTIMATED GFR Timed 06/16/2018 4:00 PM INSIGHTS STRATEGIST COMPREHENSIVE METABOLIC Timed 06/16/2018 PANEL 4:00 PM INSIGHTS STRATEGIST MAGNESIUM LEVEL Timed 06/16/2018 4:00 PM INSIGHTS STRATEGIST LACTIC ACID LEVEL Timed 06/16/2018 4:00 PM INSIGHTS STRATEGIST POC GLUCOSE Routine 06/16/2018 12:17 PM INSIGHTS STRATEGIST ESTIMATED GFR Timed 06/16/2018 10:10 AM INSIGHTS STRATEGIST COMPREHENSIVE METABOLIC Timed 06/16/2018 PANEL 10:10 AM INSIGHTS STRATEGIST MAGNESIUM LEVEL Timed 06/16/2018 10:10 AM INSIGHTS STRATEGIST LACTIC ACID LEVEL Timed 06/16/2018 10:10 AM INSIGHTS STRATEGIST O2 SATURATION, VENOUS Timed 06/16/2018 10:01 AM INSIGHTS STRATEGIST POC GLUCOSE Routine 06/16/2018 7:51 AM INSIGHTS STRATEGIST POC GLUCOSE Routine 06/16/2018 5:19 AM INSIGHTS STRATEGIST PHOSPHORUS LEVEL Timed 06/16/2018 3:30 AM INSIGHTS STRATEGIST ESTIMATED GFR Timed 06/16/2018 3:30 AM INSIGHTS STRATEGIST HEMOGLOBIN A1C Routine 06/16/2018 3:30 AM INSIGHTS STRATEGIST O2 SATURATION, VENOUS Timed 06/16/2018 3:30 AM INSIGHTS STRATEGIST LACTIC ACID LEVEL Timed 06/16/2018 3:30 AM INSIGHTS STRATEGIST MAGNESIUM LEVEL Timed 06/16/2018 3:30 AM INSIGHTS STRATEGIST COMPREHENSIVE METABOLIC Timed 06/16/2018 PANEL 3:30 AM INSIGHTS STRATEGIST HC COMPLETE BLD COUNT Routine 06/16/2018 W/AUTO DIFF 3:30 AM INSIGHTS STRATEGIST POC GLUCOSE Routine 06/16/2018 1:07 AM INSIGHTS STRATEGIST POC GLUCOSE Routine 06/15/2018 10:31 PM INSIGHTS STRATEGIST ESTIMATED GFR Timed 06/15/2018 9:20 PM INSIGHTS STRATEGIST O2 SATURATION, VENOUS Timed 06/15/2018 9:20 PM INSIGHTS STRATEGIST LACTIC ACID LEVEL Timed 06/15/2018 9:20 PM INSIGHTS STRATEGIST MAGNESIUM LEVEL Timed 06/15/2018 9:20 PM INSIGHTS STRATEGIST COMPREHENSIVE METABOLIC Timed 06/15/2018 PANEL 9:20 PM INSIGHTS STRATEGIST GGT Routine 06/15/2018 7:00 PM INSIGHTS STRATEGIST TROPONIN Routine 06/15/2018 7:00 PM INSIGHTS STRATEGIST O2 SATURATION, VENOUS STAT 06/15/2018 7:00 PM INSIGHTS STRATEGIST T4, FREE Routine 06/15/2018 7:00 PM INSIGHTS STRATEGIST THYROID STIMULATING Routine 06/15/2018 HORMONE 7:00 PM INSIGHTS STRATEGIST RETICULOCYTE COUNT Routine 06/15/2018 7:00 PM INSIGHTS STRATEGIST ECG 12-LEAD STAT 06/15/2018 5:57 PM INSIGHTS STRATEGIST HOMOCYSTINE, PLASMA Routine 06/15/2018 3:00 PM INSIGHTS STRATEGIST FOLATE LEVEL Routine 06/15/2018 3:00 PM INSIGHTS STRATEGIST VITAMIN B12 LEVEL Routine 06/15/2018 3:00 PM INSIGHTS STRATEGIST TOTAL IRON BINDING Routine 06/15/2018 CAPACITY 3:00 PM INSIGHTS STRATEGIST FERRITIN LEVEL Routine 06/15/2018 3:00 PM INSIGHTS STRATEGIST RESPIRATORY PATHOGEN Routine 06/15/2018 PANEL 2:50 PM INSIGHTS STRATEGIST URINE DRUGS OF ABUSE Routine 06/15/2018 SCREEN 1:30 PM INSIGHTS STRATEGIST URINALYSIS SCREEN AND Routine 06/15/2018 MICROSCOPY, WITH REFLEX 1:30 PM INSIGHTS STRATEGIST TO CULTURE URINE CULTURE Routine 06/15/2018 1:30 PM INSIGHTS STRATEGIST ECHOCARDIOGRAM 2D Routine 06/15/2018 COMPLETE W MMODE SPECTRAL 12:10 PM INSIGHTS STRATEGIST COLOR DOPPLER ([id number]) XR CHEST 1 VW PORTABLE Routine 06/15/2018 11:22 AM INSIGHTS STRATEGIST VENOUS BLOOD GAS STAT 06/15/2018 9:32 AM INSIGHTS STRATEGIST BLOOD CULTURE, AEROBIC & Routine 06/15/2018 ANAEROBIC 9:32 AM INSIGHTS STRATEGIST SMEAR REVIEW STAT 06/15/2018 8:59 AM INSIGHTS STRATEGIST ESTIMATED GFR STAT 06/15/2018 8:59 AM INSIGHTS STRATEGIST CREATINE KINASE, TOTAL Routine 06/15/2018 (CPK) 8:59 AM INSIGHTS STRATEGIST B NATRIURETIC PEPTIDE STAT 06/15/2018 8:59 AM INSIGHTS STRATEGIST TROPONIN STAT 06/15/2018 8:59 AM INSIGHTS STRATEGIST MAGNESIUM LEVEL STAT 06/15/2018 8:59 AM INSIGHTS STRATEGIST PROTHROMBIN TIME WITH INR STAT 06/15/2018 8:59 AM INSIGHTS STRATEGIST PHOSPHORUS LEVEL STAT 06/15/2018 8:59 AM INSIGHTS STRATEGIST PARTIAL THROMBOPLASTIN STAT 06/15/2018 TIME (PTT) 8:59 AM INSIGHTS STRATEGIST LACTIC ACID LEVEL STAT 06/15/2018 8:59 AM INSIGHTS STRATEGIST IONIZED CALCIUM STAT 06/15/2018 8:59 AM INSIGHTS STRATEGIST COMPREHENSIVE METABOLIC STAT 06/15/2018 PANEL 8:59 AM INSIGHTS STRATEGIST HC COMPLETE BLD COUNT STAT 06/15/2018 W/AUTO DIFF 8:59 AM INSIGHTS STRATEGIST POC GLUCOSE Routine 06/15/2018 8:10 AM INSIGHTS STRATEGIST POC GLUCOSE Routine 06/15/2018 6:45 AM INSIGHTS STRATEGIST XR FOOT 3 VW BILATERAL STAT 06/14/2018 8:31 AM INSIGHTS STRATEGIST ESTIMATED GFR STAT 06/14/2018 7:10 AM INSIGHTS STRATEGIST B NATRIURETIC PEPTIDE STAT 06/14/2018 7:10 AM INSIGHTS STRATEGIST TROPONIN STAT 06/14/2018 7:10 AM INSIGHTS STRATEGIST CREATINE KINASE, TOTAL STAT 06/14/2018 (CPK) 7:10 AM INSIGHTS STRATEGIST COMPREHENSIVE METABOLIC STAT 06/14/2018 PANEL 7:10 AM INSIGHTS STRATEGIST HC COMPLETE BLD COUNT STAT 06/14/2018 W/AUTO DIFF 7:10 AM INSIGHTS STRATEGIST ECG 12-LEAD STAT 06/14/2018 6:56 AM INSIGHTS STRATEGIST ECG ED PRELIMINARY Routine 06/14/2018 INTERPRETATION 6:30 AM INSIGHTS STRATEGIST POC GLUCOSE Routine 06/03/2018 11:39 AM CDT POC GLUCOSE Routine 06/03/2018 6:27 AM CDT ESTIMATED GFR Routine 06/03/2018 6:15 AM CDT HC COMPLETE BLD COUNT Routine 06/03/2018 W/AUTO DIFF 6:15 AM CDT COMPREHENSIVE METABOLIC Routine 06/03/2018 PANEL 6:15 AM CDT POC GLUCOSE Routine 06/02/2018 8:45 PM CDT ANTI SMOOTH MUSCLE AB Routine 06/02/2018 TITER 5:05 PM CDT ANTI SMOOTH MUSCLE AB Routine 06/02/2018 SCREEN 5:05 PM CDT ANTI MITOCHONDRIA SCREEN Routine 06/02/2018 5:05 PM CDT POC GLUCOSE Routine 06/02/2018 4:40 PM CDT OMAR Routine 06/02/2018 4:05 PM CDT ALPHA FETOPROTEIN Routine 06/02/2018 4:05 PM CDT FERRITIN LEVEL Routine 06/02/2018 4:05 PM CDT TOTAL IRON BINDING Routine 06/02/2018 CAPACITY 4:05 PM CDT AMMONIA LEVEL STAT 06/02/2018 4:05 PM CDT ARTERIAL BLOOD GAS STAT 06/02/2018 2:34 PM CDT LIPID PANEL STAT 06/02/2018 1:06 PM CDT HEMOGLOBIN A1C Routine 06/02/2018 1:06 PM CDT ESTIMATED GFR STAT 06/02/2018 1:06 PM CDT BASIC METABOLIC PANEL STAT 06/02/2018 1:06 PM CDT HEPATITIS ACUTE PANEL Routine 06/02/2018 1:06 PM CDT B NATRIURETIC PEPTIDE Routine 06/02/2018 5:46 AM CDT HC COMPLETE BLD COUNT Routine 06/02/2018 W/AUTO DIFF 5:46 AM CDT URINE DRUGS OF ABUSE Routine 06/01/2018 SCREEN 5:55 PM CDT US ABDOMEN COMPLETE Routine 06/01/2018 5:23 PM CDT ECHOCARDIOGRAM 2D Routine 06/01/2018 COMPLETE W MMODE SPECTRAL 12:07 PM CDT COLOR DOPPLER ([id number]) POC GLUCOSE Routine 06/01/2018 10:03 AM CDT HEPATITIS ACUTE PANEL Routine 06/01/2018 9:22 AM CDT PROTHROMBIN TIME WITH INR Routine 06/01/2018 9:22 AM CDT ESTIMATED GFR STAT 05/31/2018 10:05 PM CDT B NATRIURETIC PEPTIDE STAT 05/31/2018 10:05 PM CDT TROPONIN STAT 05/31/2018 10:05 PM CDT COMPREHENSIVE METABOLIC STAT 05/31/2018 PANEL 10:05 PM CDT HC COMPLETE BLD COUNT STAT 05/31/2018 W/AUTO DIFF 10:05 PM CDT XR CHEST 2 VW STAT 05/31/2018 10:04 PM CDT ECG 12-LEAD STAT 05/31/2018 9:43 PM CDT ECG ED PRELIMINARY Routine 05/31/2018 INTERPRETATION 9:21 PM CDT after 07/07/2017 Results * POC glucose (06/28/2018 4:41 PM INSIGHTS STRATEGIST) Only the most recent of 65 results within the time period is included. POC glucose 249 (H) 65 - 99 mg/dL [facility] Comment: HOSPITAL COUNTS INCLUDE 234 BEDS AT THE [facility] Notified RN Meter ID: [id number] Copra Processor: Kilo Suggs Performing Organization Address City/State/Zipcode Phone Number [facility] DEPARTMENT OF [address] [place] [address] PATHOLOGY AND GENOMIC MEDICINE [facility] [address] [place] [address] * Cv cta coronary arteries w contrast and ffr if needed (06/28/2018 1:25 PM INSIGHTS STRATEGIST) Narrative Performed At [facility] Nuclear Cardiology and Cardiac CT [address] [place] [address] CTA Coronary Arteries Report Pat.Name:MELISSA CALLE Pat.ID:[id number] .Date: 06/28/2018Refer.MD:CHRISTIANO HANCOCK MD Exam Time: 1:08:00 PMStudy Type:CTA Coronary Arteries Height:68inWeight:162lb BSA: 1.87 m2 DOBAge:1975,43Y Sex: MALEBP:97/58 HR:78 bpm Nuclear Tech:ALEC Whitehead(N)(CT) CPT - 4: CCTA w Thoracic Aorta (NonCongenital) [id number] Nuclear Event ID:[id number] Order ID:[id number] Reason for Study:New onset of CHF Procedures:CT Prospective (intervals) Race:C SUMMARY: Technique: IV contrast was administered and sequential 0.[address] cuts were obtained through the chest using the Siem[employer] Force CT scanner. Post-processing and 3D reconstruction were done using the [employer] workstation. Interactive image viewing and volumetric display and analysis were also performed. CTA RESULTS Left Main: A normal sized 4.5mm artery which arises normally from the left sinus of Valsalva and divides into the left anterior descending and circumflex coronary arteries. No significant atherosclerotic plaque is present. Left anterior descending (LAD): A normal sized 4.3mm artery which wraps around the apex and gives off three diagonal branches. No significantatherosclerotic plaque present. The first diagonal is a 3.1 mm bifurcating artery which has no significant atherosclerotic plaquepresent. The second diagonal is a 1.3 mm artery which has no significant atherosclerotic plaquepresent. The third diagonal is a 1.2 mm artery which has no significant atherosclerotic plaquepresent. Left circumflex: A normal sized 3.2 mm non-dominant artery which arises normally from the left main and gives off three major obtuse marginal arteries before terminating in the AV groove as the posterolateral artery. No significant atherosclerotic plaqueis present. The first obtuse marginal is a 2.1 mm artery which has no significant atherosclerotic plaquepresent. The second obtuse marginal is a 2.3 mm bifurcating artery which has no significant atherosclerotic plaquepresent. The third obtuse marginal is a 3.1 mm bifurcating artery which has no significant atherosclerotic plaquepresent. The posterolateral is a 1.8 mm artery which has no significant atherosclerotic plaquepresent. Right coronary artery: A normal sized 3.7 mm non-dominant artery which arises normally from the right sinus of Valsalva and gives off several right ventricular branches and the posterior descending artery. No significant atherosclerotic plaqueis present. The posterior descending is a 1.4 mm artery which has no significant atherosclerotic plaquepresent. Ramus: None. Stents: None. Bypass Grafts: None. Pulmonary Arteries: The main pulmonary artery is mildly dilated at3.0 cm but withno proximal thrombus identified. Left Atrial and Pulmonary Vein Dimensions: Left atrial size (A-P diameter) 5.0 cm and severely dilated. Variant PV anatomy Left superior PV19 mm. Left inferior PV17 mm. Right superior PV15 mm. Right middle PV 8 mm. Right inferior PV16 mm. There is no evidence of the left atrial appendage clot. Left Ventricular Valve Morphology/Function: Aortic valve is tri-leaflet and there is no evidence of stenosis. The valve was not imaged imaged in diastole. Mitral valve is normal without evidence of regurgitation. LVESV: 307 ml - severely dilated. Thoracic Aortic Dimensions: No aortic aneurysm or dissection is seen. Aortic root3.3 cm. Sinotubular junction 2.5 cm. Mid ascending aorta 2.4 cm. Descending thoracic aorta 2.0 cm. Pericardium: Small posterolateral pericardial effusion. No pericardial thickening. Non-Cardiac Findings: SVC catheter in place. Scattered infiltrates in both lobes along with disk atelectasis and pleural fluid along the right major and minor fissues. Portal venous air present consistent with pneumobilia CONCLUSION Coronary CTA shows no significant coronary artery atherosclerosis or stenosis. Variant PV anatomy. There is no evidence of the left atrial appendage clot. Portal venous air present consistent with pneumobilia STUDY QUALITY The study quality is good. COMMENTS None. The above report was based on a dedicated Cardiovascular CTA Protocol and interpreted by a Complaint Specialist.Should a more comprehensive assessment of non-cardiovascular findings be desired, please consult a radiologist.These images are available in the [facility] [employer] PACS system. Signed 06/28/2018 07:37 PM Jac Mcqueen MD Procedure Note Interface, Radiology Results In - 06/28/2018 7:37 PM [facility] Nuclear Cardiology and Cardiac CT [address] [address] CTA Coronary Arteries Report Pat.Name: MELISSA CALLE Pat.ID: [id number] .Date: 06/28/2018 Refer.MD: CHRISTIANO HANCOCK MD Exam Time: 1:08:00 PM Study Type:CTA Coronary Arteries Height: 68in Weight: 162lb BSA: 1.87 m2 Age: 6 1975,43Y Sex: MALE BP: 97/58 HR: 78 bpm Nuclear Tech:ALEC Whitehead(N)(CT) CPT - 4: CCTA w Thoracic Aorta (NonCongenital) [id number] Nuclear Event ID:[id number] Order ID: [id number] Reason for Study:New onset of CHF Procedures:CT Prospective (intervals) Race: C SUMMARY: Technique: IV contrast was administered and sequential 0.[address] cuts were obtained through the chest using the Siemens Somatom Force CT scanner. Post-processing and 3D reconstruction were done using the [employer] workstation. Interactive image viewing and volumetric display and analysis were also performed. CTA RESULTS Left Main: A normal sized 4.5mm artery which arises normally from the left sinus of Valsalva and divides into the left anterior descending and circumflex coronary arteries. No significant atherosclerotic plaque is present. Left anterior descending (LAD): A normal sized 4.3mm artery which wraps around the apex and gives off three diagonal branches. No significant atherosclerotic plaque present. The first diagonal is a 3.1 mm bifurcating artery which has no significant atherosclerotic plaque present. The second diagonal is a 1.3 mm artery which has no significant atherosclerotic plaque present. The third diagonal is a 1.2 mm artery which has no significant atherosclerotic plaque present. Left circumflex: A normal sized 3.2 mm non-dominant artery which arises normally from the left main and gives off three major obtuse marginal arteries before terminating in the AV groove as the posterolateral artery. No significant atherosclerotic plaque is present. The first obtuse marginal is a 2.1 mm artery which has no significant atherosclerotic plaque present. The second obtuse marginal is a 2.3 mm bifurcating artery which has no significant atherosclerotic plaque present. The third obtuse marginal is a 3.1 mm bifurcating artery which has no significant atherosclerotic plaque present. The posterolateral is a 1.8 mm artery which has no significant atherosclerotic plaque present. Right coronary artery: A normal sized 3.7 mm non-dominant artery which arises normally from the right sinus of Valsalva and gives off several right ventricular branches and the posterior descending artery. No significant atherosclerotic plaque is present. The posterior descending is a 1.4 mm artery which has no significant atherosclerotic plaque present. Ramus: None. Stents: None. Bypass Grafts: None. Pulmonary Arteries: The main pulmonary artery is mildly dilated at 3.0 cm but with no proximal thrombus identified. Left Atrial and Pulmonary Vein Dimensions: Left atrial size (A-P diameter) 5.0 cm and severely dilated. Variant PV anatomy Left superior PV19 mm. Left inferior PV17 mm. Right superior PV15 mm. Right middle PV 8 mm. Right inferior PV16 mm. There is no evidence of the left atrial appendage clot. Left Ventricular Valve Morphology/Function: Aortic valve is tri-leaflet and there is no evidence of stenosis. The valve was not imaged imaged in diastole. Mitral valve is normal without evidence of regurgitation. LVESV: 307 ml - severely dilated. Thoracic Aortic Dimensions: No aortic aneurysm or dissection is seen. Aortic root 3.3 cm. Sinotubular junction 2.5 cm. Mid ascending aorta 2.4 cm. Descending thoracic aorta 2.0 cm. Pericardium: Small posterolateral pericardial effusion. No pericardial thickening. Non-Cardiac Findings: SVC catheter in place. Scattered infiltrates in both lobes along with disk atelectasis and pleural fluid along the right major and minor fissues. Portal venous air present consistent with pneumobilia CONCLUSION Coronary CTA shows no significant coronary artery atherosclerosis or stenosis. Variant PV anatomy. There is no evidence of the left atrial appendage clot. Portal venous air present consistent with pneumobilia STUDY QUALITY The study quality is good. COMMENTS None. The above report was based on a dedicated Cardiovascular CTA Protocol and interpreted by a Complaint Specialist. Should a more comprehensive assessment of non-cardiovascular findings be desired, please consult a radiologist. These images are available in the [facility] [employer] PACS system. Signed 06/28/2018 07:37 PM Jac Mcqueen MD Performing Organization Address City/State/Zipcode Phone Number [facility] [address] [place] [address] * Potassium level (06/28/2018 4:00 AM INSIGHTS STRATEGIST) Potassium 4.7 3.5 - 5.0 mEq/L [facility] Specimen Plasma specimen Performing Organization Address City/[facility]/Zipcode Phone Number [facility] DEPARTMENT OF [address] [place] [address] PATHOLOGY AND GENOMIC MEDICINE [address] * Estimated GFR (06/28/2018 2:38 AM INSIGHTS STRATEGIST) Only the most recent of 22 results within the time period is included. Estimated GFR 77 mL/min/1.73 m2 [facility] Comment: HOSPITAL CatergoryUnitsInt rpretation G1 >=90 Normal or high G2 60-89Mildly decreased [id number] Mildly to moderately decreased Y1r08-19 Moderately to severely decreased G4 15-29Severely decreased G5 <15Kidney failure The eGFR was calculated using the Chronic Kidney Disease Epidemiology Collaboration (CKD-EPI) equation. Interpretation is based on recommendations of the National Kidney Foundation-Kidney Disease Outcomes Quality Initiative (NKF-KDOQI) published in 2014. Specimen Plasma specimen Performing Organization Address City/[facility] Phone Number [facility] DEPARTMENT OF [address] [place] [address] PATHOLOGY AND GENOMIC MEDICINE [address] * Basic metabolic panel (06/28/2018 2:38 AM INSIGHTS STRATEGIST) Only the most recent of 7 results within the time period is included. Sodium 129 (L) 135 - 148 mEq/L [facility] Potassium SEE COMMENT 3.5 - 5.0 mEq/L [facility] Comment: HOSPITAL Footnote--------- Unable to perform testing, specimen is HEMOLYZED.Recollect requested for Oleksandr VAUGHAN/F11 notified by [facility] 06/28/201803:13. Chloride 93 (L) 98 - 112 mEq/L [facility] CO2 26 24 - 31 mEq/L [facility] Anion gap 10@ANIO 7 - 15 mEq/L [facility] BUN 24 (H) 6 - 20 mg/dL [facility] Creatinine 1.17 0.70 - 1.20 mg/dL [facility] Glucose 293 (H) 65 - 99 mg/dL [facility] Calcium 8.4 8.3 - 10.2 mg/dL [facility] Specimen Plasma specimen Performing Organization Address City/[facility]/Zipcode Phone Number [facility] DEPARTMENT OF [address] [place] [id number] PATHOLOGY AND GENOMIC MEDICINE [address] * CBC with platelet and differential (06/28/2018 2:30 AM INSIGHTS STRATEGIST) Only the most recent of 18 results within the time period is included. WBC 3.16 (L) 4.50 - 11.00 k/uL [facility] RBC 3.39 (L) 4.40 - 6.00 m/uL [facility] HGB 10.0 (L) 14.0 - 18.0 g/dL [facility] HCT 31.2 (L) 41.0 - 51.0 % [facility] MCV 92.0 82.0 - 100.0 fL [facility] MCH 29.5 27.0 - 34.0 pg [facility] MCHC 32.1 31.0 - 37.0 g/dL [facility] RDW - SD 53.6 37.0 - 55.0 fL [facility] MPV 12.2 8.8 - 13.2 fL [facility] Platelet count 114 (L) 150 - 400 k/uL [facility] Nucleated RBC 0.00 /100 WBC [facility] Neutrophils 85.5 (H) 39.0 - 69.0 % [facility] Lymphocytes 12.0 (L) 25.0 - 45.0 % [facility] Monocytes 2.2 0.0 - 10.0 % [facility] Eosinophils 0.0 0.0 - 5.0 % [facility] Basophils 0.3 0.0 - 1.0 % [facility] Immature granulocytes 0.0Comment: "Immature 0.0 - 1.0 % [facility] granulocytes" (promyelocytes, HOSPITAL myelocytes, metamyelocytes) Specimen Blood Performing Organization Address City/[facility]/Zipcode Phone Number [facility] DEPARTMENT [address] [address] PATHOLOGY AND GENOMIC MEDICINE [address] * CT Abdomen Pelvis Wo Contrast (06/27/2018 4:38 AM INSIGHTS STRATEGIST) Narrative Performed At Examination:CT ABDOMEN PELVIS WO CONTRAST HM RADIANT Clinical History: abd distention and pain in pt with ventral incisional hernia Comparison: None. Findings: CT scans are performed using radiation dose reduction techniques.Technical factors are evaluated and adjusted to ensure appropriate moderation of exposure.Automated dose management technology is applied to adjust radiation exposure while achieving a diagnostic quality image. CT scan of the abdomen and pelvis was performed without intravenous contrast. The liver is heterogeneous in density. No focal discrete lesion is seen but this is limited without intravenous contrast. Pneumobilia is noted. The gallbladder is nonvisualized. The spleen, visualized pancreas, and adrenal glands are unremarkable. Tail of the pancreas is not well-visualized. Diffuse subcutaneous edema is noted. The appendix is partially visualized. Visualized portion of the appendix is unremarkable. Moderate to large amount of fecal material seen throughout the colon especially at the rectum and distal sigmoid colon. No gross distention is seen. There is moderate ascites around the bilateral pericolic gutters the pelvis. No bowel distention is seen. There is mild bowel wall prominence with thickening noted of the rectosigmoid colon and descending colon. No free air is seen. Urinary bladder is unremarkable. The visualized lung bases show small bilateral pleural effusions. IMPRESSION: 1. Status post cholecystectomy with pneumobilia. 2. Heterogeneous liver may be related to intrinsic hepatic disease but not well-characterized without intravenous contrast. 3. Moderate to large amount of fecal material throughout the colon may represent constipation. This is especially seen in the rectosigmoid colon. 4. Mild bowel wall prominence or thickening noted of the descending colon and rectosigmoid colon. This may be related to mild colitis versus incomplete distention. 5. Moderate ascites. 6. Diffuse subcutaneous edema and diffuse mesenteric edema. This may be related to volume overload. 7. Small bilateral pleural effusions. [id number] Procedure Note Interface, Radiology Results Incoming - 06/27/2018 4:48 AM INSIGHTS STRATEGIST Examination: CT ABDOMEN PELVIS WO CONTRAST Clinical History: abd distention and pain in pt with ventral incisional hernia Comparison: None. Findings: CT scans are performed using radiation dose reduction techniques. Technical factors are evaluated and adjusted to ensure appropriate moderation of exposure. Automated dose management technology is applied to adjust radiation exposure while achieving a diagnostic quality image. CT scan of the abdomen and pelvis was performed without intravenous contrast. The liver is heterogeneous in density. No focal discrete lesion is seen but this is limited without intravenous contrast. Pneumobilia is noted. The gallbladder is nonvisualized. The spleen, visualized pancreas, and adrenal glands are unremarkable. Tail of the pancreas is not well-visualized. Diffuse subcutaneous edema is noted. The appendix is partially visualized. Visualized portion of the appendix is unremarkable. Moderate to large amount of fecal material seen throughout the colon especially at the rectum and distal sigmoid colon. No gross distention is seen. There is moderate ascites around the bilateral pericolic gutters the pelvis. No bowel distention is seen. There is mild bowel wall prominence with thickening noted of the rectosigmoid colon and descending colon. No free air is seen. Urinary bladder is unremarkable. The visualized lung bases show small bilateral pleural effusions. IMPRESSION: 1. Status post cholecystectomy with pneumobilia. 2. Heterogeneous liver may be related to intrinsic hepatic disease but not well- characterized without intravenous contrast. 3. Moderate to large amount of fecal material throughout the colon may represent constipation. This is especially seen in the rectosigmoid colon. 4. Mild bowel wall prominence or thickening noted of the descending colon and rectosigmoid colon. This may be related to mild colitis versus incomplete distention. 5. Moderate ascites. 6. Diffuse subcutaneous edema and diffuse mesenteric edema. This may be related to volume overload. 7. Small bilateral pleural effusions. [id number] Performing Organization Address City/[facility] Phone Number [facility] [address] [place] [address] * ECG 12 lead (06/26/2018 9:36 PM INSIGHTS STRATEGIST) Only the most recent of 6 results within the time period is included. Ventricular rate 100 [facility] Atrial rate 100 [facility] TN interval 150 [facility] QRSD interval 80 [facility] QT interval 360 [facility] QTC interval 464 [facility] P axis 1 63 [facility] QRS axis 1 75 [facility] T wave axis 5 [facility] EKG impression Normal sinus [facility] MUSE rhythm-Nonspecific T wave abnormality-Prolonged QT-Abnormal ECG-In automated comparison with ECG of 19-JUN-2018 15:33,-Questionable change in QRS axis- Narrative Performed At Performing Organization Address City/[facility]/Zipcode Phone Number [employer] [address] [place] [address] * Phosphorus level (06/26/2018 6:00 AM INSIGHTS STRATEGIST) Only the most recent of 9 results within the time period is included. Phosphorus 2.6 2.4 - 4.5 mg/dL [facility] Specimen Plasma specimen Performing Organization Address City/[facility] Phone Number [facility] DEPARTMENT OF [address] [place] [address] PATHOLOGY AND GENOMIC MEDICINE [address] * Magnesium level (06/26/2018 6:00 AM INSIGHTS STRATEGIST) Only the most recent of 13 results within the time period is included. Magnesium 2.0 1.6 - 2.6 mg/dL [facility] Specimen Plasma specimen Performing Organization Address [facility] [place] [place] Phone Number [facility] DEPARTMENT OF [address] [place] [address] PATHOLOGY AND [facility] MEDICINE [address] * Comprehensive metabolic panel (06/25/2018 3:56 AM INSIGHTS STRATEGIST) Only the most recent of 16 results within the time period is included. Sodium 133 (L) 135 - 148 mEq/L [facility] Potassium 4.8 3.5 - 5.0 mEq/L [facility] Chloride 94 (L) 98 - 112 mEq/L [facility] CO2 31 24 - 31 mEq/L [facility] Anion gap 8@ANIO 7 - 15 mEq/L [facility] BUN 22 (H) 6 - 20 mg/dL [facility] Creatinine 1.08 0.70 - 1.20 mg/dL [facility] Glucose 163 (H) 65 - 99 mg/dL [facility] Calcium 8.1 (L) 8.3 - 10.2 mg/dL [facility] Protein 5.5 (L) 6.3 - 8.3 g/dL [facility] Comment: HOSPITAL [place] 4.6-7.0 g/dL 1 week 4.4-7.6 g/dL 7 months-1year 5.1-7.3 g/dL 1-2 years5.6-7 .5 g/dL >3 years6.0-8 .0 g/dL 18-150 6.3-8.3 g/dL Albumin 1.9 (L) 3.5 - 5.0 g/dL [facility] A/G ratio 0.5 (L) 0.7 - 3.8 [facility] Alkaline phosphatase 405 (H) 40 - 129 U/L [facility] AST 49 10 - 50 U/L [facility] ALT 42 5 - 50 U/L [facility] Total bilirubin 0.5 0.0 - 1.2 mg/dL [facility] Specimen Plasma specimen Performing Organization Address [facility] [place] [place] Phone Number [facility] DEPARTMENT OF [address] [place] [address] PATHOLOGY AND GENOMIC MEDICINE [address] * CBC hemogram (06/25/2018 2:52 AM INSIGHTS STRATEGIST) WBC 3.96 (L) 4.50 - 11.00 k/uL [facility] RBC 3.31 (L) 4.40 - 6.00 m/uL [facility] HGB 9.9 (L) 14.0 - 18.0 g/dL [facility] HCT 31.0 (L) 41.0 - 51.0 % [facility] MCV 93.7 82.0 - 100.0 fL [facility] MCH 29.9 27.0 - 34.0 pg [facility] MCHC 31.9 31.0 - 37.0 g/dL [facility] RDW - SD 52.5 37.0 - 55.0 fL [facility] MPV 11.9 8.8 - 13.2 fL [facility] Platelet count 89 (L) 150 - 400 k/uL [facility] Nucleated RBC 0.00 /100 WBC [facility] Performing Organization Address [facility] [place] [place] Phone Number [facility] DEPARTMENT OF [address] [place] [address] PATHOLOGY AND GENOMIC MEDICINE [address] * Vancomycin level, trough (06/25/2018 12:09 AM INSIGHTS STRATEGIST) Only the most recent of 3 results within the time period is included. Vancomycin, trough 18.8 10.0 - 20.0 ug/mL [facility] Comment: HOSPITAL Therapeutic Ranges: Peak 30.0 - 40.0 ug/mL Cucetg68.0 - 20.0 ug/mL Specimen Serum Performing Organization Address City/[facility]/Zipcode Phone Number [facility] DEPARTMENT OF [address] [place] [address] PATHOLOGY AND GENOMIC MEDICINE [facility] [address] [place] [id number] [facility] * XR Abdomen 1 Vw (06/24/2018 3:44 PM INSIGHTS STRATEGIST) Narrative Performed At EXAM:XR ABDOMEN 1 VW RADIANT CLINICAL:Abd swellingascites suspected COMPARISON:None. IMPRESSION: 1.Nonspecific gaseous distention multiple loops of small bowel, possible ileus. Moderate stool in the colon, likely constipation. 2.No acute osseous abnormality. 3.Trace bilateral pleural effusions. [id number] Procedure Note Interface, Radiology Results Incoming - 06/24/2018 5:39 PM INSIGHTS STRATEGIST EXAM: XR ABDOMEN 1 VW CLINICAL: Abd swelling ascites suspected COMPARISON: None. IMPRESSION: 1. Nonspecific gaseous distention multiple loops of small bowel, possible ileus. Moderate stool in the colon, likely constipation. 2. No acute osseous abnormality. 3. Trace bilateral pleural effusions. [id number] Performing Organization Address [facility], [place] Phone Number [facility] [address] [place] [address] * XR Chest 1 Vw (06/24/2018 3:43 PM INSIGHTS STRATEGIST) Narrative Performed At EXAMINATION:XR CHEST 1 VW [facility] CLINICAL HISTORY:Shortness of breath, CHF COMPARISON:06/21/2018 IMPRESSION: 1.Nonspecific elevation of the right hemidiaphragm with adjacent patchy opacities, unchanged. 2.Small right pleural effusion. 3.Stable cardiomegaly and/or pericardial effusion. 4.Right IJ venous catheter with tip in the mid SVC. 5.No acute osseous abnormality. [id number] Procedure Note Interface, Radiology Results Incoming - 06/24/2018 5:32 PM INSIGHTS STRATEGIST EXAMINATION: XR CHEST 1 VW CLINICAL HISTORY: Shortness of breath, CHF COMPARISON: 06/21/2018 IMPRESSION: 1. Nonspecific elevation of the right hemidiaphragm with adjacent patchy opacities, unchanged. 2. Small right pleural effusion. 3. Stable cardiomegaly and/or pericardial effusion. 4. Right IJ venous catheter with tip in the mid SVC. 5. No acute osseous abnormality. [id number] Performing Organization Address City/[facility] Phone Number [facility] [address] [place] [address] * Manual differential (06/24/2018 3:45 AM INSIGHTS STRATEGIST) Only the most recent of 2 results within the time period is included. Manual differential PERFORMED [facility] Neutrophils 60.0 39.0 - 69.0 % [facility] Lymphocytes 32.0 25.0 - 45.0 % [facility] Monocytes 7.0 0.0 - 10.0 % [facility] Eosinophils 1.0 0.0 - 5.0 % [facility] Basophils 0.0 0.0 - 1.0 % [facility] Metamyelocytes 0 % [facility] Promyelocytes 0 % [facility] Platelet slide review Decreased (A) [facility] Anisocytosis Moderate [facility] Polychromasia Moderate [facility] Ovalocytes Moderate [facility] Giant platelets Occasional [facility] Performing Organization Address City/State/Zipcode Phone Number [facility] DEPARTMENT OF [address] [place] [address] PATHOLOGY AND GENOMIC MEDICINE [address] * XR Chest 2 Vw (06/21/2018 8:51 PM INSIGHTS STRATEGIST) Only the most recent of 2 results within the time period is included. Narrative Performed At Examination:[facility]ST 2 [facility] Clinical History:Shortness of breath Comparison: 06/21/2018 Technique: PA and lateral views of the chest are obtained Findings: Cardiomegaly with pulmonary vascular congestion are noted. Small right pleural effusion is noted. Tip of the right IJ line is at the proximal SVC. Tip of the left central lines at the proximal SVC. No pneumothorax is seen. Impression: Cardiomegaly with pulmonary vascular congestion and right pleural effusion. [id number] Procedure Note Interface, Radiology Results Incoming - 06/21/2018 9:14 PM INSIGHTS STRATEGIST Examination: XR CHEST 2 VW Clinical History: Shortness of breath Comparison: 06/21/2018 Technique: PA and lateral views of the chest are obtained Findings: Cardiomegaly with pulmonary vascular congestion are noted. Small right pleural effusion is noted. Tip of the right IJ line is at the proximal SVC. Tip of the left central lines at the proximal SVC. No pneumothorax is seen. Impression: Cardiomegaly with pulmonary vascular congestion and right pleural effusion. [id number] Performing Organization Address [facility] Phone Number [facility] [address] [place] [address] * XR Chest 1 Vw Portable (06/21/2018 5:19 PM INSIGHTS STRATEGIST) Only the most recent of 2 results within the time period is included. Narrative Performed At EXAMINATION:XR CHEST 1 VW PORTABLE [facility] CLINICAL HISTORY:43 years Male Shortness of breath COUNTS [facility]CLUDE [facility] COMPARISON:06/15/2018 IMPRESSION: 1.Right IJ line terminates over the distal SVC in satisfactory position. Cardiomediastinal silhouette is enlarged, stable. There is central vascular congestion. 2.Small right-sided pleural effusion with adjacent right midlung and basilar atelectasis and/or consolidation, increased. No left effusion. No pneumothorax. [id number] Procedure Note Hm Interface, Radiology Results Incoming - 06/21/2018 5:31 PM INSIGHTS STRATEGIST EXAMINATION: XR CHEST 1 VW PORTABLE CLINICAL HISTORY:43 years Male Shortness of breath COUNTS [facility]CLUDE [facility] AT [facility] COMPARISON: 06/15/2018 IMPRESSION: 1. Right IJ line terminates over the distal SVC in satisfactory position. Cardiomediastinal silhouette is enlarged, stable. There is central vascular congestion. 2. Small right-sided pleural effusion with adjacent right midlung and basilar atelectasis and/or consolidation, increased. No left effusion. No pneumothorax. [id number] Performing Organization Address [facility] Phone Number [facility] [address] [place] [address] * Prothrombin time with INR (06/20/2018 4:00 AM INSIGHTS STRATEGIST) Only the most recent of 3 results within the time period is included. Prothrombin time 15.5 (H) 11.5 - 14.5 sec [facility] INR 1.3 [facility] Comment: HOSPITAL The International Normalized Ratio (INR) is a therapeutic monitoring tool for patients who are stable on oral anticoagulant therapy. An INR of 2.0-3.0 is suggested for deep vein thrombosis/pulmonary embolism. Specimen Blood Performing Organization Address City/[facility]/Zipcode Phone Number [facility] DEPARTMENT OF [address] [place] [id number] PATHOLOGY [place] [address] HOSPITAL * Troponin (06/19/2018 3:53 PM INSIGHTS STRATEGIST) Only the most recent of 5 results within the time period is included. Troponin <0.30 0.00 - 0.30 ng/mL [facility] 0.30 - 1.49 ng/mlMay indicate increased risk of acute coronary syndrome. >=1.5 ng/ml Consistent with acute myocardial infarction. The diagnostic value of a single normal or non-diagnostic result is questionable.Serial samples at 2-6 hour intervals are required to rule out acute myocardial injury. Specimen Plasma specimen Performing Organization Address City/[facility] Phone Number [facility] [place] [address] PATHOLOGY AND GENOMIC MEDICINE [address] * O2 saturation, venous (06/19/2018 5:30 AM INSIGHTS STRATEGIST) Only the most recent of 7 results within the time period is included. Hemoglobin, venous, 12.0 (L) 14.0 - 18.0 g/dL [facility] O2 saturation, venous 77 (H) 40 - 70 % [facility] Specimen Blood Performing Organization Address [facility] [place], [place] Phone Number [facility] [place] [address] PATHOLOGY AND GENOMIC [address] * Smear review (06/17/2018 4:00 AM INSIGHTS STRATEGIST) Only the most recent of 2 results within the time period is included. Platelet slide review Mkd decreased (A) [facility] Anisocytosis Moderate [facility] Polychromasia Moderate [facility] Spherocytes Occasional [facility] Ovalocytes Moderate [facility] Performing Organization Address City/[facility], [place] Phone Number [facility] [place] [address] PATHOLOGY AND GENOMIC MEDICINE [address] * Lactic acid level (06/16/2018 9:35 PM INSIGHTS STRATEGIST) Only the most recent of 6 results within the time period is included. Lactic acid 2.1 0.5 - 2.2 mmol/L [facility] Specimen Blood Performing Organization Address City/[facility], [place] Phone Number [facility] [place] [address] PATHOLOGY AND GENOMIC MEDICINE [address] * Ammonia level (06/16/2018 4:05 PM INSIGHTS STRATEGIST) Only the most recent of 2 results within the time period is included. Ammonia 39 16 - 60 umol/L [facility] Specimen Blood Performing Organization Address City/[facility] Phone Number [facility] [place] [address] PATHOLOGY AND GENOMIC MEDICINE [address] * Hemoglobin A1c (06/16/2018 3:30 AM INSIGHTS STRATEGIST) Only the most recent of 2 results within the time period is included. Hemoglobin A1C 7.2 (H) 4.0 - 5.6 % [facility] Comment: HOSPITAL HbA1c cutoffs for diagnosing diabetes: 4.0% - 5.6%=normal 5.7% - 6.4%=increased risk for diabetes (prediabetes) >=6.5%=diabetes Goals for glycemic control (ADA 2016) < 7.0%Target for non adults with diabetes. More or less stringent targets may be appropriate for individual patients. <7.5% Target for Children and adolescents with type 1 diabetes. Specimen Blood Performing Organization Address [facility] Cliniccode Phone Number [facility] [place] [address] PATHOLOGY AND GENOMIC MEDICINE [address] * Reticulocyte count (06/15/2018 7:00 PM INSIGHTS STRATEGIST) Retic %, auto 1.6 0.5 - 2.1 % [facility] Retic absolute, auto 0.0585 0.0220 - 0.1260 m/uL [facility] Specimen Blood Performing Organization Address City/State/Zipcode Phone Number [facility] [place] [address] PATHOLOGY AND [facility] MEDICINE [address] * Thyroid stimulating hormone (06/15/2018 7:00 PM INSIGHTS STRATEGIST) TSH 5.38 (H) 0.27 - 4.20 uIU/mL [facility] Specimen Plasma specimen Performing Organization Address City/[facility]/Zipcode Phone Number [facility] [place] [address] PATHOLOGY AND GENOMIC MEDICINE [address] * T4, free (06/15/2018 7:00 PM INSIGHTS STRATEGIST) T4, free 1.2 0.9 - 1.7 ng/dL [facility] Specimen Plasma specimen Performing Organization Address City/[facility] Clinic[facility]oor Phone Number [facility] [place] [address] PATHOLOGY AND GENOMIC MEDICINE [address] * GGT (06/15/2018 7:00 PM INSIGHTS STRATEGIST) GGT 142 (H) 0 - 59 U/L [facility] Specimen Plasma specimen Performing Organization Address [facility] [place], [place] Phone Number [facility] [place] [address] * Total iron binding capacity (06/15/2018 3:00 PM INSIGHTS STRATEGIST) Only the most recent of 2 results within the time period is included. Iron level 22 (L) 59 - 158 ug/dL [facility] Iron binding capacity 206 200 - 400 ug/dL [facility] % Saturation 10.7 (L) 20.0 - 40.0 % [facility] Specimen Plasma specimen Performing Organization Address [facility], [place] Phone Number [facility] [place] [address] PATHOLOGY AND [facility] MEDICINE [address] * Homocystine, plasma (06/15/2018 3:00 PM INSIGHTS STRATEGIST) Homocysteine 13.7 0.0 - 15.0 umol/L [facility] Comment: HOSPITAL The risk for coronary vascular disease increases progressively with homocysteine concentration.A 3.4 times greater risk is associated with a homocysteine concentration of greater than 15.8 umol/L as compared to a concentration below 14.1 umol/L. Specimen Plasma specimen Performing Organization Address [facility]code Phone Number [facility] [place] [address] PATHOLOGY AND GENOMIC MEDICINE [address] * Folate level (06/15/2018 3:00 PM INSIGHTS STRATEGIST) Folate 18.1 4.8 - 24.2 ng/mL [facility] Specimen Serum Performing Organization Address City/State/Zipcode Phone Number [facility] DEPARTMENT OF [address] [place] [address] PATHOLOGY AND GENOMIC MEDICINE [address] * Ferritin level (06/15/2018 3:00 PM INSIGHTS STRATEGIST) Only the most recent of 2 results within the time period is included. Ferritin level 54 30 - 400 ng/mL [facility] Specimen Plasma specimen Performing Organization Address City/[facility] Phone Number [facility] DEPARTMENT OF [address] [place] [address] PATHOLOGY AND GENOMIC MEDICINE [address] * Vitamin B12 level (06/15/2018 3:00 PM INSIGHTS STRATEGIST) Vitamin B12 966 (H) 211 - 946 pg/mL [facility] Comment: HOSPITAL Significant overlap exists between normal and deficiency states. However, most patients with deficiencies will have Serum B12 <200 pg/mL. Specimen Serum Performing Organization Address City/[facility] Phone Number [facility] [place] [address] PATHOLOGY AND GENOMIC MEDICINE [address] * Respiratory pathogen panel (06/15/2018 2:50 PM INSIGHTS STRATEGIST) Respiratory pathogen Negative for all pathogens [facility] panel tested: HOSPITAL Negative for Adenovirus Negative for Coronavirus HKU1 Negative for Coronavirus NL63 Negative for Coronavirus 229E Negative for Coronavirus OC43 Negative for Human Metapneumovirus Negative for Rhinovirus/Enterovirus Negative for Influenza A Negative for Influenza A/H1 Negative for Influenza A/H3 Negative for Influenza A/H1-2009 Negative for Influenza B Negative for Parainfluenza Virus 1 Negative for Parainfluenza Virus 2 Negative for Parainfluenza Virus 3 Negative for Parainfluenza Virus 4 Negative for Respiratory Syncytial Virus Negative for Bordetella pertussis Negative for Chlamydophila pneumoniae Negative for Mycoplasma pneumoniae This real-time PCR assay detects the presence of nucleic acids (RNA or DNA) for the respiratory pathogens listed. A result of "Not-detected" does not exclude the possibility of the presence of one or more pathogens at concentrations less than the detectable limits of the assay. Comment: Specimen Information Specimen Source: Nares Specimen Site: Right Specimen Nares - Right Performing Organization Address City/[facility] Phone Number [facility] [place] [address] PATHOLOGY AND GENOMIC MEDICINE [address] * Urinalysis screen and microscopy, with reflex to culture (06/15/2018 1:30 PM INSIGHTS STRATEGIST) Specimen site Clean catch [facility] Color, UA Dark Yellow [facility] Appearance, UA Clear [facility] Specific gravity, UA 1.026 1.001 - 1.035 [facility] pH, UA 5.0 5.0 - 8.5 [facility] Protein, UA 1+ (A) Negative [facility] Glucose, UA Negative Negative [facility] Ketones, UA Negative Negative [facility] Bilirubin, UA Negative Negative [facility] Blood, UA Negative Negative [facility] Nitrite, UA Negative Negative [facility] Urobilinogen, UA <2.0 <2.0 [facility] Leukocyte esterase, UA Negative Negative [facility] Epithelial cells, UA 2 /HPF [facility] WBC, UA 2 (H) 0 - 1 /HPF [facility] RBC, UA <1 0 - 5 /HPF [facility] Bacteria, UA Few None seen [facility] Yeast, UA None seen [facility] Yeast with pseudohyphae, None seen [facility] Specimen Urine Performing Organization Address City/[facility] Phone Number [facility] [place] [address] PATHOLOGY AND GENOMIC MEDICINE [address] * Urine drugs of abuse screen (06/15/2018 1:30 PM INSIGHTS STRATEGIST) Only the most recent of 2 results within the time period is included. Amphetamine screen, urine Positive (A) [facility] Barbiturate screen, urine Negative [facility] Benzodiazepine screen, Negative [facility] Cannabinoid screen, urine Negative [facility] Cocaine screen, urine Negative [facility] Methadone metabolite Negative [facility] (EDDP) urine HOSPITAL Opiates screen, urine Positive (A) [facility] Oxycodone screen, urine Negative [facility] Phencyclidine screen, Positive (A) [facility] urine [facility] Tricyclic screen, urine Negative [facility] Comment: HOSPITAL Drug screen minimum concentration of detectability Amphetamines 1000 ng/mL Barbiturates 200 ng/mL Benzodiazepines 300 ng/mL Cocaine 300 ng/mL Methadone 300 ng/mL Opiates 300 ng/mL Oxycodone 300 ng/mL Phencyclidine 25 ng/mL Cannabinoids 50 ng/mL Tricyclics 1000 ng/mL Negative test results indicates presumptive evidence of lack of clinically significant drug concentration in this urine specimen. Positive test results are presumptive evidence of clinically significant drug concentration in this urine specimen. Testing performed for medical purposes only. Specimen Urine Performing Organization Address [facility] Phone Number [facility] DEPARTMENT OF [address] [place] [address] PATHOLOGY AND [facility] MEDICINE [address] * Urine culture (06/15/2018 1:30 PM INSIGHTS STRATEGIST) Urine culture SEE COMMENTComment: [facility] Bacteriuria screen negative. HOSPITAL Performing Organization Address [facility], [place] Phone Number [facility] DEPARTMENT OF [address] [place] [address] PATHOLOGY AND [facility] MEDICINE [address] * Echocardiogram complete w contrast and 3D if needed (06/15/2018 12:10 PM INSIGHTS STRATEGIST) Narrative Performed At [facility] Echocardiography Report [address] [place] [address].Name:MELISSA CALLE.ID:[id number] .Date: 06/15/2018Refer.MD:JOE HULL MD Exam Time: 11:45:00 AM Study Type:Routine Echo Height:68inWeight:145lb BSA: 1.78 m2 DOBAge:1975,43Y Sex: MALEBP:93/63 HR:98 bpmSonogrphr: USAMA Garay Pat. Stat.:Inpatient Room:[place] [address] Study Status:Final Echo Event ID:[id number] Order ID:[id number] Reason for Study:Heart Failure Procedures:2D Echo, Colorflow Doppler, Intravenous Optison Contrast Race:C SUMMARY: LV size is moderately enlarged. LV EF is severely depressed. Suboptimal/insufficient TR jet. Estimated PA systolic pressure is at least 45 mmHg, assuming a mean RAP of 10 mmHg. There are no vegetations noted. FINDINGS: LV: LV size is moderately enlarged. LV EF is severely depressed. Globalhypokinesis. Estimated EF is <20%. RV: RV size is upper limits of normal. RV systolic function is severelydepressed. LA: LA volume is severely enlarged. RA: RA volume is moderately enlarged. AO: Aortic root diameter is normal. NATALYA: Trace posterolateral pericardial effusion. AV: No structural AV abnormalities noted. MV: No structural MV abnormalities noted. Mild to moderate mitralregurgitation. Etiology of MR is secondary to LV dysfunctionand remodeling causing leaflet tethering.. PV: No structural PV abnormalities noted. TV: No structural TV abnormalities noted. Mild tricuspid regurgitation Rivero: LV relaxation is impaired. LV filling pressure is elevated. Other:Insufficient TR jet to estimate PA systolic pressure. Suboptimal/insufficientTR jet. Estimated PA systolic pressureis at least 45 mmHg, assuming a mean RAP of 10 mmHg. MEASUREMENTS: 2D Parasternal [place] LA Ds4.7 cmLVPWd0.8 cm LVOT 2.1 cmAo An2.3 cm LVIDd6 cmIndex3.4 cm/m Ao Rtd 2.8 cm Index1.6 cm/m LVIDs5.4 cm LV Cwsb412.6 g(122-174) LV%fs9.9 % LVM Index 95.8 g/m2 IVSd 0.7 cmRWT0.3 LA Sng Plane LA Area 28.4 cm2(8.8-23.4) LA Vol96.9 ml Index54.4 ml/m LA LngAx 6.9 cm RA Sng Plane RA Area 22.8 cm2(8.3-19.5) RA Vol80 ml Index44.9 ml/m RA LngAx 5.4 cm EF Biplane DLR213.1 mlSV50.7 ml GVL153.4 mlEF20.1 % DOPPLER LVOT Stroke Vol LVOT 2.1 cmLVOT Tm218 msec LVOT TVI11 cmLVOT SV 38.2 ml Signed 06/15/2018 06:15 PM Rosendo Celaya M.D. Procedure Note Interface, Radiology Results In - 06/15/2018 6:16 PM INSIGHTS STRATEGIST Echocardiography Report [id number] [place] [address] Pat.Name: MELISSA CALLE [facility].ID: [id number] .Date: 06/15/2018 Refer.MD: JOE HULL MD Exam Time: 11:45:00 AM Study Type:Routine Echo Height: 68in Weight: 145lb BSA: 1.78 m2 Age: 8 1975,43Y Sex: MALE BP: 93/63 HR: 98 bpm Sonogrphr: USAMA Garay Pat. Stat.:Inpatient Room: [place] [address] Study Status:Final Echo Event ID:[id number] Order ID: [id number] Reason for Study:Heart Failure Procedures:2D Echo, Colorflow Doppler, Intravenous Optison Contrast Race: C SUMMARY: LV size is moderately enlarged. LV EF is severely depressed. Suboptimal/insufficient TR jet. Estimated PA systolic pressure is at least 45 mmHg, assuming a mean RAP of 10 mmHg. There are no vegetations noted. FINDINGS: LV: LV size is moderately enlarged. LV EF is severely depressed. Global hypokinesis. Estimated EF is <20%. RV: RV size is upper limits of normal. RV systolic function is severely depressed. LA: LA volume is severely enlarged. RA: RA volume is moderately enlarged. AO: Aortic root diameter is normal. NATALYA: Trace posterolateral pericardial effusion. AV: No structural AV abnormalities noted. MV: No structural MV abnormalities noted. Mild to moderate mitral regurgitation. Etiology of MR is secondary to LV dysfunction and remodeling causing leaflet tethering.. PV: No structural PV abnormalities noted. TV: No structural TV abnormalities noted. Mild tricuspid regurgitation Rivero: LV relaxation is impaired. LV filling pressure is elevated. Other: Insufficient TR jet to estimate PA systolic pressure. Suboptimal/insufficient TR jet. Estimated PA systolic pressure is at least 45 mmHg, assuming a mean RAP of 10 mmHg. MEASUREMENTS: 2D Parasternal [place] LA Ds 4.7 cm LVPWd 0.8 cm LVOT 2.1 cm Ao An 2.3 cm LVIDd 6 cm Index 3.4 cm/m Ao Rtd 2.8 cm Index 1.6 cm/m LVIDs 5.4 cm LV Mass 170.6 g (122-174) LV%fs 9.9 % LVM Index 95.8 g/m2 IVSd 0.7 cm RWT 0.3 LA Sng Plane LA Area 28.4 cm2 (8.8-23.4) LA Vol 96.9 ml Index 54.4 ml/m LA LngAx 6.9 cm RA Sng Plane RA Area 22.8 cm2 (8.3-19.5) RA Vol 80 ml Index 44.9 ml/m RA LngAx 5.4 cm EF Biplane EDV 252.1 ml SV 50.7 ml ESV 201.4 ml EF 20.1 % DOPPLER LVOT Stroke Vol LVOT 2.1 cm LVOT Tm 218 msec LVOT TVI 11 cm LVOT SV 38.2 ml Signed 06/15/2018 06:15 PM Rosendo Celaya M.D. Performing Organization Address City/[facility]/Zipcode Phone Number [facility] [address] [place] [address] * Blood culture, aerobic & anaerobic (06/15/2018 9:32 AM INSIGHTS STRATEGIST) Blood culture isolate No growth after 5 days of [facility] incubation. [facility] Comment: Specimen Information Specimen Source: Blood Specimen Site: Arm, right Specimen Blood - Arm, right Performing Organization Address [facility] Phone Number [facility] [place] [place] [address] PATHOLOGY AND GENOMIC MEDICINE [address] * Venous blood gas (06/15/2018 9:32 AM INSIGHTS STRATEGIST) pH, venous 7.41 7.32 - 7.42 [facility] pCO2, venous 47 45 - 51 mmHg [facility] pO2, venous 33 25 - 40 mmHg [facility] Base excess, venous 5 (H) -2 - 2 meq/L [facility] O2 saturation, venous 56 40 - 70 % [facility] Bicarbonate, venous 29.4 (H) 21.0 - 28.0 mmol/L [facility] Specimen Blood Performing Organization Address [facility] [place], [place] Phone Number [facility] [place] [address] PATHOLOGY AND GENOMIC MEDICINE [address] * Partial thromboplastin time, activated (06/15/2018 8:59 AM INSIGHTS STRATEGIST) PTT 36.2 (H) 23.0 - 36.0 sec [facility] Comment: HOSPITAL PTT therapeutic range for unfractionated heparin is 61.0-112.0 seconds which corresponds to Anti-Xa 0.3-0.7 U/ml. Specimen Blood Performing Organization Address [facility]/Zipcode Phone Number [facility] [place] [address] PATHOLOGY AND GENOMIC MEDICINE [address] * B natriuretic peptide (06/15/2018 8:59 AM INSIGHTS STRATEGIST) Only the most recent of 4 results within the time period is included. BNP 4,971 (H) 0 - 100 pg/mL [facility] Specimen Blood Performing Organization Address City/[facility] Phone Number [facility] [place] [address] PATHOLOGY AND GENOMIC MEDICINE [address] * Creatine kinase, total (CPK) (06/15/2018 8:59 AM INSIGHTS STRATEGIST) Only the most recent of 2 results within the time period is included. Creatine kinase 158 39 - 308 U/L [facility] Specimen Plasma specimen Performing Organization Address [facility] Phone Number [facility] [place] [address] PATHOLOGY AND GENOMIC MEDICINE [address] * Ionized calcium (06/15/2018 8:59 AM INSIGHTS STRATEGIST) pH 7.40 [facility] Ionized calcium 1.07 (L) 1.11 - 1.32 mmol/L [facility] Specimen Plasma specimen Performing Organization Address [facility] [place], [place] Phone Number [facility] [place] [address] PATHOLOGY AND GENOMIC MEDICINE [address] * XR Foot 3 Vw Bilateral (06/14/2018 8:31 AM INSIGHTS STRATEGIST) Narrative Performed At EXAMINATION:XR FOOT 3 VW BILATERAL RADIANT CLINICAL HISTORY: Arthritisfoot COMPARISON:None. FINDINGS: 1.Mineralization is normal and symmetrical. 2.Joint spaces are well-maintained. 3.No periarticular erosion or periosteal reaction. 4.No abnormal calcification in the soft tissues or articular cartilage. IMPRESSION: Unremarkable examination of both feet. [id number] Procedure Note Hm Interface, Radiology Results Incoming - 06/14/2018 8:36 AM INSIGHTS STRATEGIST EXAMINATION: XR FOOT 3 VW BILATERAL CLINICAL HISTORY: Arthritis foot COMPARISON: None. FINDINGS: 1. Mineralization is normal and symmetrical. 2. Joint spaces are well-maintained. 3. No periarticular erosion or periosteal reaction. 4. No abnormal calcification in the soft tissues or articular cartilage. IMPRESSION: Unremarkable examination of both feet. [id number] Performing Organization Address City/[facility] [place], [place] [address] * ECG ED Preliminary Interpretation - Not an Order (06/14/2018 6:30 AM INSIGHTS STRATEGIST) Only the most recent of 2 results within the time period is included. Narrative Performed At Oskar Brown DO 06/15/2018 11:04 PM ECG ED Preliminary Interpretation - Not an Order Performed by: Oskar Brown DO Authorized by: Oskar Brown DO ECG reviewed by ED Physician in the absence of a clinical trial manager: yes Interpretation: Interpretation: normal Rate: ECG rate:108 ECG rate assessment: tachycardic Rhythm: Rhythm: sinus tachycardia Ectopy: Ectopy: none QRS: QRS axis:Normal Conduction: Conduction: normal ST segments: ST segments:Normal T waves: T waves: normal * Anti smooth muscle Ab titer (06/02/2018 5:05 PM CDT) Anti smooth muscle Ab 1:40 (A) Not-Detected [facility] DEPARTMENT OF titer PATHOLOGY AND [employer] [employer] MEDICINE Specimen Plasma specimen Performing Organization Address [facility] [place], [place] [address] PATHOLOGY AND [facility] MEDICINE * Anti smooth muscle Ab screen (06/02/2018 5:05 PM CDT) Anti smooth muscle Ab Detected (A) Not-Detected [facility] DEPARTMENT OF screen PATHOLOGY AND [facility] [facility]IC[facility] Specimen Plasma specimen Performing Organization Address [facility] [place], [place] [address] PATHOLOGY AND [facility] [employer] MEDICINE * Anti mitochondria screen (06/02/2018 5:05 PM CDT) Anti mitochondria screen Not Detected Not-Detected [facility] DEPARTMENT OF PATHOLOGY AND [employer] [facility]ICINE Specimen Plasma specimen Performing Organization Address [facility] [place] [address] PATHOLOGY AND [facility]ICINE * Alpha fetoprotein (06/02/2018 4:05 PM CDT) Alpha fetoprotein 2.5 0.0 - 8.3 ng/mL [facility] DEPARTMENT OF Comment: PATHOLOGY AND The Gautam 8000 AFP immunoassay [employer] was used. Results obtained with different assay methods or kits should not be used interchangeably and may be different. Specimen Serum Performing Organization Address [facility]/Zipcode Phone Number [facility] OF [address] [place] [address] PATHOLOGY AND GENOMIC MEDICINE * OMAR (06/02/2018 4:05 PM CDT) OMAR screen Negative Negative [facility] DEPARTMENT OF PATHOLOGY AND GENOMIC MEDICINE Specimen Plasma specimen Performing Organization Address City/[facility] Phone Number [facility] [address] [place] [id number] PATHOLOGY AND GENOMIC MEDICINE * Arterial blood gas (06/02/2018 2:34 PM CDT) [employer] [facility] [place] [place] DEPARTMENT OF PATHOLOGY AND GENOMIC MEDICINE Collection site RRA [facility] [place] [place] DEPARTMENT OF PATHOLOGY AND GENOMIC MEDICINE O2 therapy RA [facility] [place] [place] DEPARTMENT OF PATHOLOGY AND GENOMIC MEDICINE pH, arterial 7.420 7.350 - 7.450 units [facility] [place] [place] DEPARTMENT OF PATHOLOGY AND GENOMIC MEDICINE pCO2, arterial 36.9 35.0 - 45.0 mmHg [facility] [place] [place] DEPARTMENT OF PATHOLOGY AND GENOMIC MEDICINE pO2, arterial 89.8 80.0 - 90.0 mmHg [facility] [place] [place] DEPARTMENT OF PATHOLOGY AND GENOMIC MEDICINE O2 saturation, arterial 97.9 95.0 - 100.0 % [facility] [place] [place] DEPARTMENT OF PATHOLOGY AND GENOMIC MEDICINE Base excess, arterial -0.6 mEq/L [facility] [place] [place] DEPARTMENT OF PATHOLOGY AND GENOMIC MEDICINE Bicarbonate 23.9 21.0 - 28.0 mEq/L [facility] [place] [place] DEPARTMENT OF PATHOLOGY AND GENOMIC MEDICINE O2 content 16.3 VOL% [facility] [place] [place] DEPARTMENT OF PATHOLOGY AND GENOMIC MEDICINE FiO2, inspired O2% 21.0 % [facility] [place] [place] DEPARTMENT OF PATHOLOGY AND GENOMIC MEDICINE Carboxyhemoglobin 1.3 0.0 - 1.4 % [facility] [place] [place] DEPARTMENT OF Comment: PATHOLOGY AND Reference Ranges: GENOMIC MEDICINE Carboxyhemoglobin Non smoker: 0.0 - 2.0% Smoker: 2.1 - 5.0% Heavy smoker: 5.1 - 9% Methemoglobin 0.0 0.0 - 1.0 % [facility] [place] [place] DEPARTMENT OF PATHOLOGY AND GENOMIC MEDICINE Hemoglobin, blood gas 12.0 (L) 14.0 - 18.0 g/dL [facility] [place] [place] DEPARTMENT OF PATHOLOGY AND GENOMIC MEDICINE pO2, A-a 18.0 mmHg [facility] [place] [place] DEPARTMENT OF PATHOLOGY AND GENOMIC MEDICINE Specimen Blood Performing Organization Address City/State/Zipcode Phone Number [facility] [address] [place] [address] PATHOLOGY AND GENOMIC MEDICINE * Hepatitis acute panel (06/02/2018 1:06 PM CDT) Only the most recent of 2 results within the time period is included. Hepatitis A IgM Non-reactive Non-reactive [facility] [place] [place] DEPARTMENT OF PATHOLOGY AND GENOMIC MEDICINE Hepatitis B core IgM Non-reactive Non-reactive [facility] [place] [place] DEPARTMENT OF PATHOLOGY AND GENOMIC MEDICINE Hepatitis B surface Ag Non-reactive Non-reactive [facility] [place] [place] DEPARTMENT OF PATHOLOGY AND GENOMIC MEDICINE Hepatitis C Ab Non-reactive Non-reactive [facility] [place] [place] DEPARTMENT OF PATHOLOGY AND GENOMIC MEDICINE Specimen Serum Performing Organization Address City/[facility] Phone Number [facility] [address] [place] [address] PATHOLOGY AND GENOMIC MEDICINE * Lipid panel (06/02/2018 1:06 PM CDT) Cholesterol 75 0 - 199 mg/dL [facility] [place] [place] DEPARTMENT OF PATHOLOGY AND GENOMIC MEDICINE Triglycerides 41 0 - 149 mg/dL [facility] [place] [place] DEPARTMENT OF PATHOLOGY AND GENOMIC MEDICINE HDL cholesterol 50 40 - 9,999 mg/dL [facility] [place] [place] DEPARTMENT OF PATHOLOGY AND GENOMIC MEDICINE LDL cholesterol 17Comment: Result obtained by 0 - 99 mg/dL [facility] [place] [place] DEPARTMENT OF direct LDL measurement PATHOLOGY AND [facility] Lipid panel See below [facility] [place] [place] DEPARTMENT OF interpretation Comment: PATHOLOGY AND Total Cholesterol GENOMIC MEDICINE (mg/dL) LDL Cholesterol (mg/dL) <200 Desirable <100 Optimal 200-239Borderline -[id number] 29Near or above optimal >=240High 130-159Borderline- high 160-189High >=190Very high HDL Cholesterol (mg/dL) Triglycerides (mg/dL) <40Low <150 Normal >=60 High 150-199Borderline- high 200-499High >=500Very high Risk Catergories that modify LDL goals. Risk Catergories LDL goal (mg/dL) CHD and CHD risk equivalent <100 (10-year risk >20%) Multiple (2+) risk factors <130 (10-year risk=<20%) 0-1 risk factors <160 (<10-year risk) Defining levels of lipids in metabolic syndrome Triglycerides >=150 mg/dL HDL Cholesterol Men <40 mg/dL Women <50 mg/dL Non-HDL cholesterol is a second target for therapy in persons with high triglycerides (>=200 mg/dL) Specimen Plasma specimen Performing Organization Address City/State/Zipcode Phone Number [facility] [address] [place] [address] PATHOLOGY AND GENOMIC MEDICINE * US Abdomen Complete (06/01/2018 5:23 PM CDT) Narrative Performed At EXAM: US ABDOMEN COMPLETE [facility] CLINICAL DATA:Abn liver function tests (LFTs) COMPARISON: NONE. FINDINGS: PANCREAS: Thehead and body of the pancreas are unremarkable. The tail of elizabeth not well seen on the current study. LIVER:The liver demonstrates heterogeneous echogenicity without focal mass or intrahepatic biliary ductal dilatation. MPV:Doppler evaluation of the portal vein demonstrates normal hepatopedal flow. CBD:0.56 cm within normal limits. GALLBLADDER:The gallbladder has been surgically removed. RIGHT KIDNEY:The right kidney has been previously removed. LEFT KIDNEY:The left kidney is normal in size and echogenicity. There is no evidence of mass, calculi, or hydronephrosis. The left kidney cljajevs03.30 cm. SPLEEN:The spleen is homogeneous and not enlarged measuring9.82 cm AORTA:The visualized upper abdominal aorta demonstrates no evidence of ectasia or aneurysm. IVC:The visualized portions of the inferior vena cava are unremarkable. IMPRESSION: 1.The right kidney and gallbladder have been previously removed. 2. The liver has a heterogeneous appearance. There are no liver masses present. There is no evidence of any intrahepatic biliary dilatation. 3. The common bile that is not dilated. 4. The pancreas, spleen and left kidney are unremarkable. [id number] Procedure Note Interface, Radiology Results Incoming - 06/01/2018 7:20 PM CDT EXAM: US ABDOMEN COMPLETE CLINICAL DATA: Abn liver function tests (LFTs) COMPARISON: NONE. FINDINGS: PANCREAS: The head and body of the pancreas are unremarkable. The tail of the is not well seen on the current study. LIVER: The liver demonstrates heterogeneous echogenicity without focal mass or intrahepatic biliary ductal dilatation. MPV: Doppler evaluation of the portal vein demonstrates normal hepatopedal flow. CBD: 0.56 cm within normal limits. GALLBLADDER: The gallbladder has been surgically removed. RIGHT KIDNEY: The right kidney has been previously removed. LEFT KIDNEY: The left kidney is normal in size and echogenicity. There is no evidence of mass, calculi, or hydronephrosis. The left kidney measures 12.30 cm . SPLEEN: The spleen is homogeneous and not enlarged measuring 9.82 cm AORTA: The visualized upper abdominal aorta demonstrates no evidence of ectasia or aneurysm. IVC: The visualized portions of the inferior vena cava are unremarkable. IMPRESSION: 1. The right kidney and gallbladder have been previously removed. 2. The liver has a heterogeneous appearance. There are no liver masses present. There is no evidence of any intrahepatic biliary dilatation. 3. The common bile that is not dilated. 4. The pancreas, spleen and left kidney are unremarkable. [id number] Performing Organization Address City/State/Zipcode Phone Number [facility] [address] [place] [address] * Echocardiogram complete w contrast and 3D if needed (06/01/2018 12:07 PM CDT) Ao Root Diameter 3.20 cm [facility] AoV Area, Vmax 4.47 cm2 [facility] AoV Area, VTI 4.07 cm2 [facility] AoV Mean PG 1.30 mmHg [facility] AoV Peak PG 1.81 mmHg [facility] AoV Vmax 0.69 m/s [facility] AoV VTI 0.10 m [facility] IVS,d 0.67 cm [facility] IVS/LVPW,2D 0.87 [facility] Left Atrium Dimension 5.22 cm [facility] Anterior LV,d 6.84 cm [facility] LV EF,2D 15.89 % [facility] LV,s 6.46 cm [facility] LVOT area 4.64 cm2 [facility] LVOT Diam,S 2.43 cm [facility] LVOT Vmax 0.66 m/s [facility] LVOT VTI 0.09 m [facility] LVPWD,d 0.77 cm [facility] PV Pk Grad 1.38 mmHg [facility] PV VMAX 0.59 m/s [facility] RVSP (TR) 42.19 mmHg [facility] TR Vpeak 2.84 mm/s [facility] MV E A ratio 1.70 [facility] TR pk grad 30.50 mmHg [facility] MR Vmax 5.00 m/s [facility] E wave decelartion time 82.53 msec [facility] MV Peak A Adam 0.55 m/s [facility] MV valve area p 1/2 9.19 cm2 [facility] method MV Peak E Adam 0.94 m/s [facility] MV stenosis pressure 1/2 23.93 ms [facility] time AV LVOT peak gradient 1.68 mmHg [facility] RVSP 42.19 mmHg [facility] Ao Root Diameter 3.20 cm [facility] MV mean gradient 1.29 mmHg [facility] LV SYS VOL 212.77 ml [facility] LV RIVERO VOL 242.46 ml [facility] LA area s A4C 32.88 cm2 [facility] LV SV Teich 2D 29.69 ml [facility] LV Vol s Teich PSAX 212.77 ml [facility] LVOT CO 4.15 l/min [facility] LVOT HR for LVOT CO 106.16 bpm [facility] MR peak grad 3.73 mmHg [facility] MV Vmax 0.97 m [facility] MV VTI Tips 0.14 m [facility] AoV Vmn 0.56 [facility] IVS s 2D 0.80 [facility] LV FS Teich 2D 5.60 [facility] MV AE ratio 0.59 [facility] LV FS Cube 2D 5.60 [facility] LVOT Vmn 0.45 [facility] Aov area Vmn 3.86 cm2 [facility] LVOT mean grad 0.91 mmHg [facility] MAX Pred HR 178.63 [facility] 85 of MPHR 151.84 [facility] Calc MPHR 178.63 bpm [facility] IVS pct thck PLAX 18.15 % [facility] LV SV Cube 2D 50.85 ml [facility] LV vol d cube 2D 320.06 ml [facility] LV vol s cube 2D 269.22 ml [facility] LVPW pct thck PLAX 8.68 % [facility] LVPW s PLAX 0.84 cm [facility] MV Decel slope 11.34 m/s2 [facility] Pred Exer Dur R1 11.57 [facility] Pred METS R1 11.79 [facility] LA Vol MOD A4C 126.85 ml [facility] Velocity Ratio (V1/V2) 0.96 m/s [facility] EF 12.25 % [facility] E/A ratio 1.71 [facility] Narrative Performed At [facility] The left ventricle chamber size is moderately enlarged. Left Ventricular ejection fraction is <10%. Left atrium size is mildly dilated. The mitral valve appears thickened. There is moderate mitral valve regurgitation. Mild-moderate tricuspid valve regurgitation. Moderate pulmonary hypertension present. Performing Organization Address City/State/Zipcode Phone Number [facility] [address] [place] [address] after 07/07/2017 Insurance Payer Benefit Subscriber ID Type Phone Address Plan / Group PENDING MEDICAID PENDING xxxxxxxxx Medicaid DISABILITY MEDICAID COVERAGE Advance Directives Patient has advance care planning documents on file. For more information, raymond serrano contact: Joey Kruger [address] [place] [address]
--- OUTSIDE RECORDS SUMMARY | 2018-07-08 19:48 | XMS REPORT ---
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 Allergies, Adverse Reactions, Alerts Allergy Name Allergy Type Status Severity Reaction(s) Onset Date Inactive Date Treating Clinician Comments iodine DA Active U 2018-07-08 00:00:00 iodine DA Active U 2018-06-11 00:00:00 iodine DA Active U 2016-12-27 00:00:00 Medications This patient has no known medications. Encounters Start Date/Time End Date/Time Encounter Type Admission Type Attending Clinicians Care Facility Care Department Encounter ID 2018-06-15 00:48:17 2018-06-15 00:48:17 Emergency [facility] [id number] 2018-06-14 21:31:30 2018-06-14 21:31:30 Emergency [facility] [id number] 2018-06-14 18:27:34 2018-06-14 18:27:34 Emergency [facility] [id number] 2017-03-04 00:00:00 2017-04-30 00:00:00 Outpatient [facility] [id number] 2017-04-12 13:03:01 2017-04-12 13:03:01 Outpatient [facility] [id number]
[2018-07-08 20:36] LABS: BASOPHILS # (AUTO) 0.1 (0.0-0.1); BASOPHILS % 1.4 % (0.0-1.0); EOSINOPHILS # (AUTO) 0.1 (0.0-0.4); EOSINOPHILS % 1.1 % (0.0-6.0); HEMATOCRIT 35.1 % (38.2-49.6); LYMPHOCYTES # (AUTO) 1.1 (1.0-3.2); LYMPHOCYTES % 25.2 % (18.0-39.1); MEAN CORPUSCULAR HGB CONC 31.3 g/dL (31-35); MEAN CORPUSCULAR VOLUME 95.6 fL (81-99); MONOCYTES # (AUTO) 0.5 (0.2-0.8); NEUTROPHILS # (AUTO) 2.7 (2.1-6.9); NEUTROPHILS % 61.1 % (38.7-80.0); PLATELET COUNT 99 x10e3/uL (140-360); RED BLOOD COUNT 3.67 x10e6/uL (4.3-5.7); RED CELL DISTRIBUTION WIDTH 17.9 % (11.7-14.4)
--- NOTE | 2018-07-08 20:51 | Diagnostic Imaging Report ---
EXAMINATION: Chest AP portable CLINICAL HISTORY: Shortness of breath. COMPARISON: None FINDINGS: TUBES and LINES: None. LUNGS and PLEURA: Increased density in the right hemithorax suggestive of pleural effusion and right middle and lower lobe atelectasis with deviation of the trachea to the right of the midline. Consolidation cannot be excluded in the lower lobe. Elevation of the right hemidiaphragm. No pneumothorax. HEART AND MEDIASTINUM: The cardiomediastinal silhouette is unremarkable. BONES AND SOFT TISSUES: No acute osseous lesion. Soft tissues are unremarkable. UPPER ABDOMEN: No free air under the diaphragm. IMPRESSION: Findings suggestive of right pleural effusion, as well as right middle and lower lobe atelectasis. Cannot exclude consolidation or underlying mass. Consider CT chest with contrast for further evaluation. Signed by: Dr. Romeo Cespedes M.D. on 07/08/2018 8:47 PM
[2018-07-08 20:56] LABS: ALBUMIN 2.8 g/dL (3.5-5.0); ALBUMIN/GLOBULIN RATIO 0.6 (0.8-2.0); ANION GAP 19.7 mmol/L (8-16); CALCIUM 8.6 mg/dL (8.4-10.2); CREATININE, SERUM 1.93 mg/dL (0.72-1.25); POTASSIUM 4.7 mmol/L (3.5-5.1)
[2018-07-08 21:02] LABS: CREATINE KINASE MB 2.1 ng/mL (0-5.0)
[2018-07-08 22:29] LABS: ABG PH 7.51 (7.31-7.41)
[2018-07-08 22:30] LABS: ABG HCO3 22 mmol/L (23-28); ABG PCO2 28 mmHg (41-51); ABG PO2 94 mmHg (80-105)
--- NOTE | 2018-07-08 23:05 | Diagnostic Imaging Report ---
EXAM: CT CHEST WO DATE: 07/08/2018 9:06 PM INDICATION: Evaluate findings on chest x-ray shortness of breath COMPARISON: None TECHNIQUE: Multidetector CT scanning of the chest was performed. Coronal and sagittal multiplanar reformations were obtained. CT low dose techniques were utilized, as applicable. IV Contrast: 0 ml Isovue 370/300 FINDINGS: LUNGS AND PLEURA: There is a small to moderate loculated right pleural effusion and small layering left pleural effusion. Bronchial wall thickening and heterogeneous and nodular opacities are seen in the right lower lobe and to a lesser extent in the left upper and lower lobes (for example 1.3 cm image 78, 1.5 cm image 84, 0.6 cm image 62). HEART, MEDIASTINUM, VESSELS: Cardiomegaly with small pericardial effusion. There are scattered prominent nodes but difficult to assess given lack of IV contrast. Aorta is normal in caliber. Main pulmonary artery measures 3 cm. UPPER ABDOMEN: Limited assessment without IV contrast. Cirrhotic appearing liver with possible steatosis, pneumobilia, splenomegaly, atrophic right kidney, hepaticojejunostomy are poorly assessed. Pancreas is not seen. Mild ascites. MUSCULOSKELETAL: Mild to moderate anterior wedging of approximately T6 and T7. IMPRESSION: Cardiomegaly with small pleural effusions, loculated on the right. Scattered nodular opacities, likely infectious. Consider 3 month follow-up to document resolution. Signed by: Dr Yue Franco MD on 07/08/2018 11:01 PM
[2018-07-08 23:52] VITALS: BP 97/81
== END | disposition home or self-care (01) ==
LOC: ER 19:45
DX: R06.09 Other forms of dyspnea (principal); J90 Pleural effusion, not elsewhere classified; E11.65 Type 2 diabetes mellitus with hyperglycemia; I50.9 Heart failure, unspecified; N18.9 Chronic kidney disease, unspecified; K76.9 Liver disease, unspecified; F19.11 Other psychoactive substance abuse, in remission; Z90.5 Acquired absence of kidney
CPT/HCPCS: 36415; 71045; 71250; 80053; 82550; 82553; 82805; 83605; 83880; 84484; 85025; 87040; 93005; 99284